=== PATIENT | male | born 1995 ===

== ENCOUNTER 2020-08-18 09:29 | Outpatient (REF) | payer SELFPAY | END 2020-08-18 09:30 | disposition home or self-care (01) | LOC: HO.LAB 09:29 | PROVIDERS: Visit Provider Internal Medicine | DX: Z20.828 Contact with and (suspected) exposure to other viral communicable diseases (principal) | CPT/HCPCS: C9803; U0003 ==

== ENCOUNTER 2021-04-17 18:38 | Emergency (ER) | payer MEDICAID, SELFPAY ==
--- NOTE | ~2021-04-17 | XR_ITS ---
EXAMINATION: XR SHOULDER, RIGHT XR CLAVICLE, RIGHT CLINICAL INFORMATION: Right shoulder injury. COMPARISON: None TECHNIQUE: AP internal rotation, external rotation, scapular Y, and Grashey views of the right shoulder. AP and axial views of the right clavicle. FINDINGS: There is a markedly comminuted fracture of the right mid clavicular shaft with posteroinferior displacement of the distal fracture fragment by roughly 2 shaft widths and foreshortening at the fracture site by up to 3 cm. The proximal fracture margin approaches the skin surface and may be open. No additional fractures are identified. Mild acromioclavicular osteoarthritis. Glenohumeral joint is unremarkable. Humeral head is appropriately situated at the glenoid. Imaged portion of the right chest wall is normal. XR/XR clavicle RT IMPRESSION: Comminuted, displaced mid clavicular shaft fracture, possibly open. No additional fractures.
--- NOTE | ~2021-04-17 | XR_ITS ---
EXAMINATION: XR SHOULDER, RIGHT XR CLAVICLE, RIGHT CLINICAL INFORMATION: Right shoulder injury. COMPARISON: None TECHNIQUE: AP internal rotation, external rotation, scapular Y, and Grashey views of the right shoulder. AP and axial views of the right clavicle. FINDINGS: There is a markedly comminuted fracture of the right mid clavicular shaft with posteroinferior displacement of the distal fracture fragment by roughly 2 shaft widths and foreshortening at the fracture site by up to 3 cm. The proximal fracture margin approaches the skin surface and may be open. No additional fractures are identified. Mild acromioclavicular osteoarthritis. Glenohumeral joint is unremarkable. Humeral head is appropriately situated at the glenoid. Imaged portion of the right chest wall is normal. XR/XR shoulder RT min 2V IMPRESSION: Comminuted, displaced mid clavicular shaft fracture, possibly open. No additional fractures.
[2021-04-17 18:41] VITALS: BP 123/85; PULSE 81; RESP 18; TEMP 36.7; O2SAT 94; BMI 21.7
--- NOTE | 2021-04-17 18:46 | PC.NURSE ---
pt offered tylenol, refused medication at this time.
[2021-04-17] MEDS: oxyCODONE HCl Immed Release 5 MG TABLET PO (19:56)
--- NOTE | 2021-04-17 20:00 | ED.EXTPRO ---
HPI - Extremity Problem General Chief complaint: Extremity Injury, Upper Stated complaint: collerbone injury Time Seen by Provider: 04/17/21 19:44 History of Present Illness HPI Narrative: Patient complains of right clavicle fracture playing football, he was hit with a helmet in the right clavicle and now complains of deformity pain and some tingling in his fingertips Related Data Previous Rx's Medication Instructions Recorded oxycodone 5 mg tablet 5 mg PO Q6H PRN #20 tab 04/17/21 oxycodone-acetaminophen 5 mg-325 1 tab PO Q4H PRN #40 tab 04/20/21 mg tablet (Percocet) Allergies Allergy/AdvReac Type Severity Reaction Status Date / Time ibuprofen [From MOTRIN] Allergy Unknown SWELLING Verified 05/03/21 10:17 Review of Systems Review of Systems: Positive for right clavicle pain and swelling with tingling in fingertips Negatives are no head injury no headache no vision changes no neck pain no numbness or weakness, no difficulty breathing no chest pain no rib pain no abdominal pain no nausea or vomiting no other extremity pains or injuries Yes all other systems are reviewed and are negative [facility] Past Medical History Medical History Right clavicle fracture Surgical History S/P appendectomy Social History Social History Alcohol intake: never Patient Tobacco Use Status: Never used Tobacco Second Hand Smoke Exposure: No Substance Use Type: Marijuana Current occupational status: unemployed Current occupation: rt handed Physical Exam Vital Signs: Vital Signs: Last Vital Signs Temp 98.0 F 04/17/21 18:41 Pulse 81 04/17/21 18:41 Resp 18 04/17/21 18:41 BP 123/85 04/17/21 18:41 Pulse Ox 94 04/17/21 18:41 Body Mass Index 21.7 General appearance no acute distress Head is normocephalic atraumatic Neck is supple and nontender The right clavicle is clearly deformed and tenting with tenderness but the skin is intact The chest is clear to auscultation bilateral with symmetric equal breath sounds, there is no rib tenderness Heart no murmur The abdomen soft nontender Extremities other than the right arm have full range of motion without tenderness swelling or deformity The right arm again there is tenderness and tenting in the clavicle but there is no other tenderness in the right upper extremity there is full range of motion in the elbow the wrist and the fingers, sensation is intact and neurovascular intact distal Course Course Course Narrative: X-ray showed a comminuted displaced clavicle fracture This was discussed with the orthopedic physician after school program assistant by text who said the patient will be seen quickly as he likely needs surgical repair He is placed in a sling given script for pain medicine and will follow closely with Orthopedics Discharge Plan Discharge Clinical Impression: Closed fracture of right clavicle Patient Disposition: Home, Self-Care Additional Instructions: You have of bad fracture of the clavicle, you may be a candidate for surgery so follow closely with orthopedist Return any time any concerns This was discussed with physician after school program assistant domingo Prescriptions: New oxycodone 5 mg tablet 5 mg PO Q6H PRN (Reason: pain) Qty: 20 RF: 0 No Action oxycodone-acetaminophen [Percocet] 5-325 mg tablet 1 tab PO Q4H PRN (Reason: post op pain) Qty: 40 RF: 0 Referrals: Marlyn Jacobs PA-C [Physician Induction Coordination Power Engineer] - 2 days (Deformed tenting right clavicle fracture) Lisseth Bautista MD [Physician] - 2 days (Deformed tenting clavicle fracture) Interventions: ED Discharge Assessment Last Done: 04/17/21 20:17 Discharge Date/Time: 04/17/21 20:19
--- NOTE | 2021-04-17 20:13 | PC.NURSE ---
RIGHT ARM IN SLING, MOVING FINGERS WITH GOOD MOBILITY/TEMPERATURE AND SENSATION. PT UNDERSTANDS TO FOLLOW UP WITH [facility], ALSO GIVEN NUMBER FOR [facility]. PT AMBULATORY WITH [facility].
== END 2021-04-17 20:19 | disposition home or self-care (01) ==
PROVIDERS: Emergency Provider Emergency Medicine Emergency Medical Services
DX: S42.021A Displaced fracture of shaft of right clavicle, initial encounter for closed fracture (principal); W50.0XXA Accidental hit or strike by another person, initial encounter; Y93.61 Activity, american tackle football; Y92.321 Football field as the place of occurrence of the external cause; Y99.9 Unspecified external cause status
CPT/HCPCS: 73000; 73030; 99284

== ENCOUNTER → 2021-04-19 13:55 | Outpatient (BNVA) | payer MEDICAID, SELFPAY | PROVIDERS: Visit Provider Physician Assistant | DX: S42.001A Fracture of unspecified part of right clavicle, initial encounter for closed fracture (principal) | CPT/HCPCS: 99202 ==

== ENCOUNTER 2021-04-20 07:42 | Day surgery (SDC) | payer MEDICAID, SELFPAY ==
[2021-04-20] VITALS (11 sets, daily range): BP systolic 120–133; BP diastolic 65–85; PULSE 52–82; RESP 14–20; TEMP 36.2–36.8; O2SAT 98–99; BMI 21.7
--- NOTE | ~2021-04-20 | FL_ITS ---
EXAMINATION: XR FLUOROSCOPY WITH IMAGES CLINICAL INFORMATION: Comminuted fracture mid right clavicle. COMPARISON: Radiographs right clavicle 04/17/2021 TECHNIQUE: Fluoroscopy performed by Dr. Lamont Quintanilla. Fluoroscopy time: 0.1 minutes DAP: 0.0277 mGycm2 Images: 2 FINDINGS: The right clavicular fracture is reduced with superior compression plate and multiple screws. Fracture fragments are in near anatomic alignment. Hardware is intact. FL/FL guidance in OR IMPRESSION: Status post open reduction internal fixation right clavicular fracture.
--- NOTE | 2021-04-20 08:58 | ED_ITS ---
HPI - General Adult General Chief complaint: Medical Clearance Stated complaint: rt clavicle fx Time Seen by Provider: 04/20/21 08:57 Source: patient Mode of arrival: ambulatory Limitations: no limitations History of Present Illness MD complaint: clavicle fracture Onset (ago): day(s) (injury occurred on monday) Location: chest (R clavicle) Radiation: non-radiation Severity: moderate Quality: aching Pain Consistency: constant Relieving factors: immobilization Exacerbating factors: movement Associated symptoms: other (bruising and tenting on the skin) Treatments prior to arrival: other (sling) Related Data Previous Rx's Medication Instructions Recorded oxycodone 5 mg tablet 5 mg PO Q6H PRN #20 tab 04/17/21 oxycodone-acetaminophen 5 mg-325 1 tab PO Q4H PRN #40 tab 04/20/21 mg tablet (Percocet) Allergies Allergy/AdvReac Type Severity Reaction Status Date / Time ibuprofen [From MOTRIN] Allergy Unknown SWELLING Verified 04/19/21 14:21 Review of Systems Review of Systems: Constitutional : No Fever, No Chills ENT/Mouth : No sore throat, No Rhinorrhea Eyes: No Eye Pain, No Swelling, No Redness Cardiovascular : No Chest Pain, No SOB Respiratory : No Cough, No Sputum Gastrointestinal : No Nausea, No Vomiting, No Diarrhea Genitourinary : No Dysuria, No Urinary Frequency, No Hematuria, Musculoskeletal : pos joint pain, No Myalgias, No Joint Swelling Skin : No Skin Lesions, No rash Neuro : No Weakness, No Numbness, No Dizziness, No Headache Psych : No Anxiety/Panic, No Depression All other systems reviewed and are negative COUNT INCLUDES THE [facility] Past Medical History Attestation statement: The following information was validated with the patient. Medical History Right clavicle fracture Surgical History S/P appendectomy Social History Social History (Updated 04/20/21 @ 09:13 by Amrita Urbina DO) Alcohol intake: never Patient Tobacco Use Status: Never used Tobacco Second Hand Smoke Exposure: No Use of substances other than those prescribed or required for medical reasons: Yes Substance Use Type: Marijuana Substance Use Frequency: Occasionally Are you DNR?: No Advance Directives: No Advance Directives Information Provided: No Advance Directives on File: No Current occupational status: unemployed Current occupation: rt handed Physical Exam Vital Signs: Vital Signs: Last Vital Signs Temp 97.7 F 04/20/21 14:05 Pulse 68 04/20/21 15:20 Resp 18 04/20/21 15:20 BP 120/68 04/20/21 15:20 Pulse Ox 99 04/20/21 15:20 Body Mass Index 21.7 Appearance: Alert. Oriented X3. No acute distress. Eyes: Pupils equal, round and reactive to light. ENT: Pharynx normal. Neck: Normal inspection. Neck supple. CVS: Normal heart rate and rhythm. Pulses normal. Chest: tenting and bruising noted over R clavicle Respiratory: No respiratory distress. Breath sounds normal. Abdomen: Soft and non-tender. Skin: Skin warm and dry. Normal skin color. Normal skin turgor. Extremities: No lower extremity edema. RUE distal NV intact, sling in place Neuro: Oriented X 3. No motor deficit. No sensory deficit. Medical Decision Making [facility] Narrative Medical decision making narrative: 25 yo male here with clavicle fracture with tenting and ecchymosis he needs surgery at this time to correct the fracture, NV intact, he will need COVID swab and CBC, recreational THC use, no cocaine, NPO since last night, not toxic, orthopedics aware and will take patient to surgery today. Lab Data Result diagrams: 04/20/21 09:17 Labs: Lab Results 04/20/21 04/20/21 Range/Units 09:17 09:17 WBC 4.7 L (4.8-10.8) X10*3/uL RBC 4.82 (4.60-5.80) X10*6/uL Hgb 13.5 L (14.0-18.0) g/dl Hct 40.5 L (42-52) % MCV 84.0 (80-98) fL MCH 28.0 (27.0-33.0) pg MCHC 33.3 (31.0-36.0) g/dl RDW 13.2 (11.0-16.0) % Plt Count 202 (160-400) X10*3/uL MPV 9.0 L (9.4-12.4) fL Absolute Nucleated RBC 0.000 (0.0-0.012) X10*3/uL Nucleated RBC % (auto) 0.0 (0.0-0.2) /100WBC COVID-19 (MANPREET) Negative (Negative) COVID-19 Clin Com See Note Discharge Plan Discharge Clinical Impression: Right clavicle fracture Qualifiers: Encounter type: sequela Clavicle location: shaft Fracture type: closed Fracture alignment: displaced Qualified Code(s): S42.021S - Displaced fracture of shaft of right clavicle, sequela Patient Disposition: Admitted as Observation
[2021-04-20 09:43] LABS: Hematocrit 40.5 % (42-52); Hemoglobin 13.5 g/dl (14.0-18.0); Mean Corpuscular HGB Conc 33.3 g/dl (31.0-36.0); Platelet Count 202 X10*3/uL (160-400); Red Blood Count 4.82 X10*6/uL (4.60-5.80); Red Cell Distribution Width 13.2 % (11.0-16.0); White Blood Count 4.7 X10*3/uL (4.8-10.8)
[2021-04-20 10:06] LABS: COVID-19 Test Negative (Negative); IDNOW Serial# 9DD0AD1C
--- NOTE | 2021-04-20 10:33 | P.HPOP_ITS ---
History of Present Illness History of Present Illness Date of Service: 04/20/21 Chief complaint: rt clavicle fx - med clearance Narrative: Moris Magallon is a 25 year old male with a 3 day history of a closed clavicle fracture. He presented yesterday to my office with tenting of the skin. He continues to have pain and worsening swelling over the fracture site. Review of Systems Review of Systems: Yes all other systems are reviewed and are negative Constitutional: Constitutional: Reports no additional constitutional complaints Eyes: Eyes: Reports no additional eye complaints ENT: Reports system reviewed and no additional complaints, except as documented Cardiovascular: Cardiovascular: Reports no additional cardiovascular complaints Respiratory: Respiratory: Reports no additional respiratory complaints Gastrointestinal: Gastrointestinal: Reports no additional gastrointestinal complaints Genitourinary: Genitourinary: Reports no additional male genitourinary complaints Musculoskeletal: Musculoskeletal: Reports as per HPI Neurologic: Reports as per HPI PMFSH Past Medical History Medical History Right clavicle fracture Surgical History Surgical History S/P appendectomy Social History Social History (Updated 04/20/21 @ 09:13 by Amrita Urbina DO) Alcohol intake: never Patient Tobacco Use Status: Never used Tobacco Substance Use Type: Marijuana Substance Use Frequency: Socially Advance Directives: No Advance Directives Information Provided: No Current occupational status: unemployed Current occupation: rt handed Meds Allergies Allergy/AdvReac Type Severity Reaction Status Date / Time ibuprofen [From MOTRIN] Allergy Unknown SWELLING Verified 04/19/21 14:21 Physical Exam Vital Signs: Vital Signs: Last Vital Signs Temp 97.1 F 04/20/21 08:59 Pulse 53 04/20/21 08:59 Resp 14 04/20/21 08:59 BP 123/65 04/20/21 08:59 Pulse Ox 98 04/20/21 08:59 Body Mass Index 21.7 Const: General: cooperative, healthy appearing, no acute distress and well groomed Orientation/consciousness: oriented to person and oriented to place HENMT: Head: Yes normal to inspection, Yes normocephalic and Yes atraumatic Eyes: General: appearance normal, both eyes and all related structures Alignment and Position: alignment normal Conjunctivae: conjunctivae normal EOM: EOMs intact bilaterally Neck: Neck: Yes normal visual inspection and Yes trachea midline Resp: Other: No rerpiratory distress Effort & Inspection: normal respiratory effort and able to speak in complete sentences Cardio: Other: Palpable radial pulse with no appreciable rythmic abnormalities GI: Other: No abdominal distension Back/Spine/Pelvis: Cervical Spine: normal cervical lordosis and cervical ROM normal Skin: General skin exam: no rashes or lesions noted Neuro: General: oriented to person, oriented to place and gait normal Extrem: Other: right shoulder with superior swellign and eccymosis. There is TENTING of the skin over the fracture site. SILT RUE Firing EPL/FDP/IO 2+ RP Results Labs Result Diagrams: 04/20/21 09:17 Labs: Abnormal lab results 04/20/21 Range/Units 09:17 WBC 4.7 L (4.8-10.8) X10*3/uL Hgb 13.5 L (14.0-18.0) g/dl Hct 40.5 L (42-52) % MPV 9.0 L (9.4-12.4) fL H & H 04/20/21 Range/Units 09:17 Hgb 13.5 L (14.0-18.0) g/dl Hct 40.5 L (42-52) % All other labs normal. Diagnostic results Shoulder x-ray: image reviewed (Displaced and shortened right clavicle fracture) Assessment and Plan (1) Right clavicle fracture: Qualifiers: Clavicle location: shaft Encounter type: sequela Fracture alignment: displaced Fracture type: closed Qualified Code(s): S42.021S - Displaced fracture of shaft of right clavicle, sequela Status: Acute This is a this is a 25-year-old active and healthy gentleman with a right clavicle fracture. There is tenting of the skin and I recommend operative intervention. I discussed with him the risks benefits and alternatives includ ing but not limited to the risk of infection, stiffness, superficial nerve injury, need for further surgery, removal of hardware, cosmetic scarring. He expressed understanding and we will proceed forward. Quality Stroke Does the patient have a stroke diagnosis?: No VTE Prior VTE?: No VTE Risk Level:: Surgical - low VTE Device Contraindication: Procedure Contraindicated VTE Drug Contraindication: Treatment Not Indicated Procedures Date of Service Date of Service: 04/20/21
--- NOTE | 2021-04-20 10:35 | HO.ANESPROP2 ---
[facility] Active Problems Active Problems: All Active Problems (Updated 04/20/21 @ 10:28 by Lyle Lewis) Right clavicle fracture (Acute) Clavicular fracture (Acute) Past Medical History Medical History Right clavicle fracture Functional capacity: independent ambulation Family History Family history of problems with anesthesia: No Surgical History Surgical History S/P appendectomy History of Problems with Anesthesia: No Social History Social History (Updated 04/20/21 @ 09:13 by Amrita Urbina DO) Alcohol intake: never Patient Tobacco Use Status: Never used Tobacco Substance Use Type: Marijuana Substance Use Frequency: Socially Advance Directives: No Advance Directives Information Provided: No Current occupational status: unemployed Current occupation: rt handed Meds Allergies Allergy/AdvReac Type Severity Reaction Status Date / Time ibuprofen [From MOTRIN] Allergy Unknown SWELLING Verified 04/19/21 14:21 Exam Exam Date and Time: April 20, 2021 1035 Height,Weight and Vital Signs: Height 6 ft 1 in Weight 74.843 kg Last Vital Signs Temp 97.1 F 04/20/21 08:59 Pulse 53 04/20/21 08:59 Resp 14 04/20/21 08:59 BP 123/65 04/20/21 08:59 Pulse Ox 98 04/20/21 08:59 Pertinent Lab Results Pertinent Lab Results: Laboratory Tests 04/20/21 04/20/21 09:17 09:17 WBC 4.7 L RBC 4.82 Hgb 13.5 L Hct 40.5 L MCV 84.0 MCH 28.0 MCHC 33.3 RDW 13.2 Plt Count 202 MPV 9.0 L Absolute Nucleated RBC 0.000 Nucleated RBC % (auto) 0.0 COVID-19 (MANPREET) Negative COVID-19 Clin Com See Note Airway TM Dist: >3cm Neck ROM: Full Heart: RRR Lungs: CTA Assessment and Plan Final Anesthetic Review Family History of Problems with Anesthesia: No History of Problems with Anesthesia: No
--- NOTE | 2021-04-20 10:39 | MHC.SHP ---
Pre-Procedural Eval Section A Date of Service: 04/20/21 The patient is an INPATIENT: No Changes since office visit: Yes Patient answered all questions; No Cold of Flu in the past 2 weeks, No New Medical Problems and No Changes in Medication The History & Physical has been completed within 30 days and I have reviewed it.: Yes Section B Chief Complaint: rt clavicle fx - med clearance Allergies: Allergies Allergy/AdvReac Type Severity Reaction Status Date / Time ibuprofen [From MOTRIN] Allergy Unknown SWELLING Verified 04/19/21 14:21 Plan I have reviewed the history and physical and performed a pertinent physical examination on my patient. No changes have occurred unless specified.
[2021-04-20] MEDS: Lactated Ringers 1,000 ML 50 ML IVCONT (11:11)
--- NOTE | 2021-04-20 11:11 | PC.NURSE ---
pt states allergy to ibuprofen causing lip swelling. Pt denies any reaction to Motrin, Acetaminophen or Tylenol.
--- NOTE | 2021-04-20 13:42 | P.BOP_ITS ---
Brief Operative Note Date of Service: 04/20/21 Pre-op diagnosis: right clavicle fracture Post-op diagnosis: same Procedure: ORIF right clavicle fracture Implants: yuko Surgeon: Lamont Quintanilla MD Anesthesia: GETA and regional Was an Environmental Project Manager used for this Procedure?: No Estimated blood loss (mL): 25 IV fluids (mL): 1,000 Pathology: none sent Condition: stable Disposition: PACU
--- NOTE | 2021-04-22 14:43 | W.PM.OPN ---
Operative Note Operative Note Date of Service: 04/20/21 Narrative: Pre-op diagnosis: right clavicle fracture Post-op diagnosis: same Procedure: ORIF right clavicle fracture Implants: yuko Surgeon: Lamont Quintanilla MD Anesthesia: GETA and regional Was an Straight Edger used for this Procedure?: No Estimated blood loss (mL): 25 IV fluids (mL): 1,000 Pathology: none sent Condition: stable Disposition: PACU Indications: This is a 25-year-old gentleman who presented with tenting of his skin after closed clavicle fracture. He was consented to undergo ORIF. Procedure in detail: Patient was brought to the operative room placed in the beach chair position and his right upper extremity was prepped and draped in standard sterile fashion. A time-out was called to identify proper site proper procedure proper surgeon and IV antibiotics were administered. I began by making a longitudinal incision over the superior aspect of the clavicle. At dissection was taken down thickly lateral to the fracture and with Littler scissor dissection medial. Once identified the fracture was a comminuted displaced fracture with two large butterfly fragments. I cleared the fractures off with irrigation, sharp dissection and a repeat rupture and then used a lobster claw tenaculum to reduce the fractures. I then placed 1 a to P lag screws through the 2 primary fragments provisionally stabilizing the fracture. I then selected a 8 hole bridging locking plate and this was placed superior clavicle and biplanar fluoroscopy was used to confirm positioning. I used standard AO technique to place 4 bicortical locking screws medial to the fracture and 4 bicortical nonlocking screws lateral to the fracture. Once this was done I confirmed with biplanar fluoroscopy that position of the hardware was satisfactory. I then irrigated copiously and closed with absorbable suture and a running Prolene, Steri-Strips and skin glue. Patient was placed in sterile dressing extubated brought to recovery room in stable condition there were no known complications.
== END 2021-04-20 16:05 | disposition home or self-care (01) ==
LOC: HO.ED 09:53 → HO.SSS 11:43
PROVIDERS: Emergency Provider Emergency Medicine; Visit Provider Orthopaedic Surgery
PROC: (CPT 23515; principal; 2021-04-20 12:30)
DX: S42.021A Displaced fracture of shaft of right clavicle, initial encounter for closed fracture (principal); W21.81XA Striking against or struck by football helmet, initial encounter; Y93.61 Activity, american tackle football; Y92.9 Unspecified place or not applicable; Y99.8 Other external cause status; F12.90 Cannabis use, unspecified, uncomplicated; Z20.822 Contact with and (suspected) exposure to COVID-19
CPT/HCPCS: 23515; 36415; 85027; 87635; 99282; C1713; J0690; J1100; J1885; J2250; J2405; J3010

== ENCOUNTER 2021-05-03 07:34 | Outpatient (REF) | payer MEDICAID, SELFPAY ==
--- NOTE | ~2021-05-03 | XR_ITS ---
EXAMINATION: XR CLAVICLE, RIGHT CLINICAL INFORMATION: Fracture. COMPARISON: Most recent right clavicle radiographs dated 04/17/2021 TECHNIQUE: Straight AP and cephalad angulated AP views of the right clavicle. FINDINGS: Right clavicular superior stabilization plate with multiple fixation screws. Clavicular fracture in near-anatomic alignment. No hardware fracture. No perihardware lucency to suggest loosening or infection. No abnormal soft tissue calcification. XR/XR clavicle RT IMPRESSION: Right clavicular ORIF without evidence of hardware complication. Clavicular fracture now in near-anatomic alignment.
== END 2021-05-03 07:35 | disposition home or self-care (01) ==
LOC: HO.HOSX 07:34
PROVIDERS: Visit Provider Physician Assistant
DX: S42.001D Fracture of unspecified part of right clavicle, subsequent encounter for fracture with routine healing (principal)
CPT/HCPCS: 73000; 99212

== ENCOUNTER 2021-05-12 12:49 | Outpatient (REF) | payer MEDICAID, SELFPAY ==
--- NOTE | ~2021-05-12 | XR_ITS ---
EXAMINATION: XR CLAVICLE, RIGHT CLINICAL INFORMATION: Clavicular fracture. COMPARISON: 05/03/2021 TECHNIQUE: Two views of the right clavicle. FINDINGS: Again seen is a stabilization plate with multiple screws and a mid right clavicular fracture. Compared with the prior study, fracture edges appear less distinct and there is some periosteal reaction present but no fracture healing with fusion of fragments as of yet. XR/XR clavicle RT IMPRESSION: Fixation plate right clavicular fracture. Some interval healing has occurred.
== END 2021-05-12 12:50 | disposition home or self-care (01) ==
LOC: HO.HOSX 12:49
PROVIDERS: Visit Provider Physician Assistant
DX: S42.001A Fracture of unspecified part of right clavicle, initial encounter for closed fracture (principal); T81.9XXA Unspecified complication of procedure, initial encounter
CPT/HCPCS: 73000; 99212

== ENCOUNTER → 2021-05-13 07:49 | Outpatient (BNVA) | payer MEDICAID, SELFPAY | PROVIDERS: Visit Provider Orthopaedic Surgery | DX: T81.33XA Disruption of traumatic injury wound repair, initial encounter (principal); Z87.311 Personal history of (healed) other pathological fracture | CPT/HCPCS: 99212 ==

== ENCOUNTER 2021-05-14 10:24 | Day surgery (SDC) | payer MEDICAID, SELFPAY ==
--- NOTE | 2021-05-13 13:09 | HO.ANESPROP2 ---
Documented by User: Alicia Sheffield NP 05/13/21 13:10 HPI - Anesthesia Eval Consult details Narrative: 26yo M for Right Delayed Secondary Closure of Clavicle s/p clavical ORIF 04/20/21 with [facility] Active Problems Active Problems: All Active Problems (Updated 05/13/21 @ 08:25 by Lamont Quintanilla MD) Abnormal surgical wound (Acute) Right clavicle fracture (Acute) Past Medical History Medical History Right clavicle fracture Family History Family history of problems with anesthesia: No Surgical History Surgical History S/P appendectomy History of Problems with Anesthesia: No Social History Social History Alcohol intake: never Patient Tobacco Use Status: Never used Tobacco Second Hand Smoke Exposure: No Use of substances other than those prescribed or required for medical reasons: Yes Substance Use Type: Marijuana Substance Use Frequency: Occasionally Are you DNR?: No Advance Directives: No Advance Directives Information Provided: Yes Current occupational status: unemployed Current occupation: rt handed Meds Allergies Allergy/AdvReac Type Severity Reaction Status Date / Time ibuprofen [From MOTRIN] Allergy Unknown SWELLING Verified 05/13/21 07:53 Exam Exam Date and Time: May 13, 2021 1309 Pertinent Lab Results Pertinent Lab Results: Laboratory Tests 04/20/21 09:17 WBC 4.7 L Hgb 13.5 L Hct 40.5 L Plt Count 202 Assessment and Plan Assessment Anesthesia Assessment: Chart Reviewed Final Anesthetic Review Family History of Problems with Anesthesia: No History of Problems with Anesthesia: No Documented by User: Karen Smith MD 05/14/21 12:05 PMF Past Medical History Medical History Right clavicle fracture Functional capacity: wheelchair bound Family History Pertinent family history: [facility] Surgical History Surgical History S/P appendectomy Social History Social History Alcohol intake: never Patient Tobacco Use Status: Never used Tobacco Second Hand Smoke Exposure: No Use of substances other than those prescribed or required for medical reasons: Yes Substance Use Type: Marijuana Substance Use Frequency: Occasionally Are you DNR?: No Advance Directives: No Advance Directives Information Provided: Yes Current occupational status: unemployed Current occupation: rt handed Meds Allergies Allergy/AdvReac Type Severity Reaction Status Date / Time ibuprofen [From MOTRIN] Allergy Unknown SWELLING Verified 05/13/21 07:53 Exam Airway Mallampati Class: II Neck ROM: Full Heart: RRR Lungs: cta Assessment and Plan Assessment Anesthesia Assessment: Anesthesia Plan Discussed and Smoking Cess. Discussed Final Anesthetic Review NPO: Yes ASA Class: I Final Preanesthetic Review: Meds/Allgs Chart Reviewed, Consent Obtained/Reviewed and Anes Risks/Benef Reviewed Patient Risk: Low Procedure Risk: Low Anesthetic Plan Anesthetic Plan: GA Disposition: Standard PACU
[2021-05-14] VITALS (8 sets, daily range): BP systolic 109–138; BP diastolic 58–67; PULSE 53–63; RESP 16–18; TEMP 36.2–36.4; O2SAT 98–100; BMI 21.7
[2021-05-14] MEDS: Lactated Ringers 1,000 ML 100 ML IVCONT (11:04)
--- NOTE | 2021-05-14 12:09 | MHC.SHP ---
Pre-Procedural Eval Section A Date of Service: 05/14/21 The patient is an INPATIENT: No Changes since office visit: Yes Patient answered all questions; No Cold of Flu in the past 2 weeks, No New Medical Problems and No Changes in Medication The History & Physical has been completed within 30 days and I have reviewed it.: Yes Section B Chief Complaint: Disruption of wound Allergies: Allergies Allergy/AdvReac Type Severity Reaction Status Date / Time ibuprofen [From MOTRIN] Allergy Unknown SWELLING Verified 05/13/21 07:53 Plan I have reviewed the history and physical and performed a pertinent physical examination on my patient. No changes have occurred unless specified.
[2021-05-14] MEDS: Acetaminophen 325 MG TABLET 650 MG PO (13:22)
[2021-05-14] MEDS: fentaNYL citrate/PF 100 MCG/2 ML VIAL 25 MCG IVPUSH (13:23)
[2021-05-14] MEDS: oxyCODONE HCl Immed Release 5 MG TABLET PO (13:23)
--- NOTE | 2021-05-16 16:25 | PM.OP ---
Brief Operative Note Date of Service: 05/14/21 Pre-op diagnosis: right clavicle wound dehiscence Post-op diagnosis: same Procedure: delayed primary closure right clavicle Surgeon: Lamont Quintanilla MD Anesthesia: [facility] Was an Application Integration Engineer used for this Procedure?: No Estimated blood loss (mL): 25 IV fluids (mL): 500 Pathology: none sent Condition: stable Disposition: PACU
--- NOTE | 2021-05-17 16:46 | P.OP_ITS ---
Operative Note Operative Note Date of Service: 05/13/21 Narrative: Pre-op diagnosis: right clavicle wound dehiscence Post-op diagnosis: same Procedure: delayed primary closure right clavicle Surgeon: Lamont Quintanilla MD Anesthesia: [facility] Was an Renewable Energy Consultant used for this Procedure?: No Estimated blood loss (mL): 25 IV fluids (mL): 500 Pathology: none sent Condition: stable Disposition: PACU Procedure in detail: Patient was brought the operating room placed supine on the operative table and a modified beach chair position was assumed and a time- out was called to identify proper site proper procedure proper surgeon IV antibiotics per weight were administered. I began by opening up the small area of wound dehiscence. Unfortunately this was right along the incision and the portion of the incision medial to the dehiscence opened quite easily and therefore I reopened about 50% of the incision. There was no evidence of infection but the skin was very tenuous over the plate and so I irrigated copiously with 6 L of saline and used a rongeur to remove any necrotic or fibrinous material. I then closed with a vertical mattress 2-0 nylon. Patient was then placed in a sterile dressing awakened from anesthesia brought to recovery room in stable condition there were no known complications.
== END 2021-05-14 13:00 | disposition home or self-care (01) ==
PROVIDERS: Visit Provider Orthopaedic Surgery
PROC: (CPT 12020; principal; 2021-05-14 12:00)
DX: T81.31XA Disruption of external operation (surgical) wound, not elsewhere classified, initial encounter (principal); Y83.8 Other surgical procedures as the cause of abnormal reaction of the patient, or of later complication, without mention of misadventure at the time of the procedure; Y92.9 Unspecified place or not applicable
CPT/HCPCS: 12020; J0690; J2250; J3010

== ENCOUNTER → 2021-05-20 15:22 | Outpatient (BNVA) | payer MEDICAID, SELFPAY | PROVIDERS: Visit Provider Physician Assistant | DX: Z47.1 Aftercare following joint replacement surgery (principal); Z96.611 Presence of right artificial shoulder joint; S42.021S Displaced fracture of shaft of right clavicle, sequela; X50.3XXS Overexertion from repetitive movements, sequela; Z88.8 Allergy status to other drugs, medicaments and biological substances | CPT/HCPCS: 99212 ==

== ENCOUNTER 2021-05-31 08:18 | Outpatient (REF) | payer MEDICAID, SELFPAY | END 2021-05-31 08:19 | disposition home or self-care (01) | LOC: HO.HOSX 08:18 | PROVIDERS: Visit Provider Orthopaedic Surgery | DX: Z13.89 Encounter for screening for other disorder (principal) ==

== ENCOUNTER → 2021-06-03 14:29 | Outpatient (BNVA) | payer MEDICAID, SELFPAY | PROVIDERS: Visit Provider Physician Assistant | DX: Z48.02 Encounter for removal of sutures (principal); S42.021D Displaced fracture of shaft of right clavicle, subsequent encounter for fracture with routine healing; Z79.2 Long term (current) use of antibiotics | CPT/HCPCS: 99212 ==

== ENCOUNTER 2021-06-17 14:18 | Outpatient (REF) | payer MEDICAID, SELFPAY ==
--- NOTE | ~2021-06-17 | XR_ITS ---
EXAMINATION: XR CLAVICLE, RIGHT CLINICAL INFORMATION: Fracture status post ORIF. COMPARISON: 05/12/21. TECHNIQUE: Two views of the right clavicle. FINDINGS: A sideplate and screws remain in stable position across the fracture the midshaft of the clavicle. Anatomic alignment is maintained. Developing callus is present. The fracture line is still visible. XR/XR clavicle RT IMPRESSION: Healing right clavicular fracture in stable anatomic alignment status post ORIF.
== END 2021-06-17 14:19 | disposition home or self-care (01) ==
LOC: HO.HOSX 14:18
PROVIDERS: Visit Provider Physician Assistant
DX: S42.001D Fracture of unspecified part of right clavicle, subsequent encounter for fracture with routine healing (principal); T81.9XXD Unspecified complication of procedure, subsequent encounter
CPT/HCPCS: 73000; 99212

== ENCOUNTER 2021-07-22 09:41 | Outpatient (REF) | payer MEDICAID, SELFPAY ==
--- NOTE | ~2021-07-22 | XR_ITS ---
EXAMINATION: XR CLAVICLE, RIGHT CLINICAL INFORMATION: Fracture of the right clavicle. COMPARISON: 06/17/2021 TECHNIQUE: Two views of the right clavicle. FINDINGS: Plate and screw fixation hardware remains in place transfixing the right midclavicular fracture. Hardware is intact. Osseous alignment is unchanged. Increased callus formation at the fracture site. Appropriate alignment of the acromioclavicular joint. XR/XR clavicle RT IMPRESSION: Intact fixation hardware of the right clavicle with continued healing.
== END 2021-07-22 09:42 | disposition home or self-care (01) ==
LOC: HO.HOSX 09:41
PROVIDERS: Visit Provider Physician Assistant
DX: S42.001D Fracture of unspecified part of right clavicle, subsequent encounter for fracture with routine healing (principal); T81.9XXD Unspecified complication of procedure, subsequent encounter
CPT/HCPCS: 73000; 99212

== ENCOUNTER 2021-09-23 08:03 | Outpatient (REF) | payer MEDICAID, SELFPAY ==
--- NOTE | ~2021-09-23 | XR_ITS ---
EXAMINATION: XR CLAVICLE, RIGHT CLINICAL INFORMATION: Fracture COMPARISON: 07/22/2021 TECHNIQUE: Frontal and oblique views of the right clavicle. FINDINGS: Plate, multiple screws across the fracture of the right clavicle remain in place intact, fracture lines are less visible suggesting a proper healing there is periosteal reaction and new bone formation. No radiographic evidence of device failure.. XR/XR clavicle RT IMPRESSION: Healing fracture, ORIF, hardware right clavicle fracture are intact.
== END 2021-09-23 08:04 | disposition home or self-care (01) ==
LOC: HO.HOSX 08:03
PROVIDERS: Visit Provider Physician Assistant
DX: S42.001D Fracture of unspecified part of right clavicle, subsequent encounter for fracture with routine healing (principal); Z96.9 Presence of functional implant, unspecified
CPT/HCPCS: 73000; 99212

== ENCOUNTER 2021-09-28 05:52 | Day surgery (SDC) | payer MEDICAID, SELFPAY ==
[2021-09-28] VITALS (12 sets, daily range): BP systolic 106–125; BP diastolic 64–73; PULSE 61–72; RESP 12–16; TEMP 36.1–36.7; O2SAT 98–100; BMI 21.7
--- NOTE | ~2021-09-28 | FL_ITS ---
EXAMINATION: XR FLUOROSCOPY WITH IMAGES CLINICAL INFORMATION: Removal hardware of right clavicle. COMPARISON: Radiograph of the right clavicle dated from 09/23/2021. TECHNIQUE: Fluoroscopy performed by Dr. Lamont Quintanilla. Fluoroscopy time: 0 minutes DAP: [id number] Images: 1 FL/FL guidance in OR FINDINGS/IMPRESSION: Provided fluoroscopic image demonstrate a single screw projecting over the right clavicle. A radiologist was not present during the procedure. Please correlate with intraoperative report.
--- NOTE | 2021-09-28 07:09 | P.CONAN_ITS ---
HPI - Anesthesia Eval Consult details Narrative: 26 M for right clavicle hardware removal PMFSH Active Problems Active Problems: All Active Problems (Updated 09/23/21 @ 10:22 by Tyra Lloyd PA-C) Retained orthopedic hardware (Acute) Closed fracture of right clavicle with routine healing (Acute) Abnormal surgical wound (Acute) Right clavicle fracture (Acute) Past Medical History Medical History Right clavicle fracture Functional capacity: independent ambulation Family History Family history of problems with anesthesia: No Surgical History Surgical History S/P appendectomy History of Problems with Anesthesia: No Social History Social History Alcohol intake: never Patient Tobacco Use Status: Never used Tobacco Second Hand Smoke Exposure: No Use of substances other than those prescribed or required for medical reasons: No Substance Use Type: Marijuana Are you DNR?: No Advance Directives: No Advance Directives Information Provided: Yes Advance Directives on File: No Current occupational status: employed 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 [employer] Meds Allergies Allergy/AdvReac Type Severity Reaction Status Date / Time ibuprofen [From MOTRIN] Allergy Unknown SWELLING Verified 07/22/21 14:15 Exam Exam Date and Time: September 28, 2021 0709 Height,Weight and Vital Signs: Height 6 ft 1 in Weight 74.843 kg Last Vital Signs Temp 97.0 F 09/28/21 06:25 Pulse 63 09/28/21 06:25 Resp 16 09/28/21 06:25 BP 125/72 09/28/21 06:25 Pulse Ox 100 09/28/21 06:25 Airway Mallampati Class: II TM Dist: >3cm Neck ROM: Full Loose/Missing/Broken Teeth: Yes Assessment and Plan Final Anesthetic Review Family History of Problems with Anesthesia: No History of Problems with Anesthesia: No NPO: Yes ASA Class: I Final Preanesthetic Review: Anes Risks/Benef Reviewed Patient Risk: Intermediate Procedure Risk: Intermediate Anesthetic Plan Anesthetic Plan: GA Disposition: Standard PACU
--- NOTE | 2021-09-28 07:43 | MHC.SHP ---
Pre-Procedural Eval Section A Date of Service: 09/28/21 The patient is an INPATIENT: No Changes since office visit: Yes Patient answered all questions; No Cold of Flu in the past 2 weeks, No New Medical Problems and No Changes in Medication The History & Physical has been completed within 30 days and I have reviewed it.: Yes Section B Chief Complaint: ortho hardware removal Allergies: Allergies Allergy/AdvReac Type Severity Reaction Status Date / Time ibuprofen [From MOTRIN] Allergy Unknown SWELLING Verified 07/22/21 14:15 Plan I have reviewed the history and physical and performed a pertinent physical examination on my patient. No changes have occurred unless specified.
[2021-09-28] MEDS: fentaNYL citrate/PF 100 MCG/2 ML VIAL 25 MCG IVPUSH ×3 (09:21→09:35)
[2021-09-28] MEDS: Acetaminophen 325 MG TABLET 650 MG PO (09:22)
[2021-09-28] MEDS: oxyCODONE HCl Immed Release 5 MG TABLET PO (09:22)
--- NOTE | 2021-09-28 12:15 | PM.OP ---
Brief Operative Note Date of Service: 09/28/21 Pre-op diagnosis: retained orthopaedic hardware Post-op diagnosis: same Procedure: Removal of hardware clavicle right Surgeon: Lamont Quintanilla MD Anesthesia: [facility] and local Was an Maxillofacial Pathology used for this Procedure?: Yes Maxillofacial Pathology: Tyra Lloyd Estimated blood loss (mL): 25 IV fluids (mL): 1,000 Pathology: none sent Condition: stable Disposition: PACU
--- NOTE | 2021-09-29 12:22 | P.OP_ITS ---
Operative Note Operative Note Date of Service: 09/29/21 Narrative: Date of Service: 09/28/21 Pre-op diagnosis: retained orthopaedic hardware Post-op diagnosis: same Procedure: Removal of hardware clavicle right Surgeon: Lamont Quintanilla MD Anesthesia: [facility] and local Was an Wire Preparation Worker used for this Procedure?: Yes Wire Preparation Worker: Tyra Lloyd Estimated blood loss (mL): 25 IV fluids (mL): 1,000 Pathology: none sent Condition: stable Disposition: PACU Patient was brought to the operating room and placed in a modified beach chair position on the surgical table. He was prepped and draped in standard sterile fashion and a time out was called to identify proper site, proper procedure and IV antibiotics per weight were administered. I began by making an incision over the prior incision. The plate was very superficial and easily exposed. There was no evidence of infection. I removed all screws easily and without complication. I then irrigated copiously and removed all excess tissue and bony fragments. I then closed in a layered fashion with 3-0 Vicryl and absorbable subcuticular barbed suture. Skin glue and Steri-Strips were then applied. Final radiographs were taken. The leg screw remained in place. The fracture was stable and appeared largely healed. I injected local around the area of the incision and sterile dressings were applied. Patient was extubated brought to recovery room in stable condition. There were no known complications.
== END 2021-09-28 10:35 | disposition home or self-care (01) ==
PROVIDERS: PCP Internal Medicine; Visit Provider Orthopaedic Surgery
PROC: (CPT 20670; principal; 2021-09-28 07:30)
DX: T84.84XA Pain due to internal orthopedic prosthetic devices, implants and grafts, initial encounter (principal); G89.18 Other acute postprocedural pain; Y83.8 Other surgical procedures as the cause of abnormal reaction of the patient, or of later complication, without mention of misadventure at the time of the procedure; Y92.9 Unspecified place or not applicable
CPT/HCPCS: 20670; J0690; J1100; J1170; J2250; J2405; J3010

== ENCOUNTER 2021-10-11 07:50 | Outpatient (REF) | payer MEDICAID, SELFPAY ==
--- NOTE | ~2021-10-11 | XR_ITS ---
EXAMINATION: XR CLAVICLE, RIGHT CLINICAL INFORMATION: Right clavicle fracture. COMPARISON: Right clavicle radiographs dated 09/23/2021. TECHNIQUE: 2 of the right clavicle. FINDINGS: There has been interval removal of the superior fixation plate and securing cortical screws. There is residual cortical screws seen in the mid one third of the clavicle without significant change. The right midclavicular fracture appears healed with associated deformity/sclerosis, but overall good anatomic alignment. The right sternoclavicular, acromioclavicular and glenohumeral joints are intact. The soft tissues are unremarkable. XR/XR clavicle RT IMPRESSION: No significant right clavicular abnormality status post superior plate removal.
== END 2021-10-11 07:51 | disposition home or self-care (01) ==
LOC: HO.HOSX 07:50
PROVIDERS: Visit Provider Physician Assistant
DX: S42.001D Fracture of unspecified part of right clavicle, subsequent encounter for fracture with routine healing (principal)
CPT/HCPCS: 73000; 99212

== ENCOUNTER 2021-11-10 05:59 | Outpatient (REF) | payer MEDICAID, SELFPAY | END 2021-11-10 06:00 | disposition home or self-care (01) | LOC: HO.HOSX 05:59 | PROVIDERS: Visit Provider Physician Assistant | DX: Z13.89 Encounter for screening for other disorder (principal) ==

== ENCOUNTER 2022-07-18 06:51 | Emergency (ER) | payer MEDICAID, SELFPAY ==
--- NOTE | ~2022-07-18 | XR_ITS ---
EXAMINATION: XR FINGER, LEFT CLINICAL INFORMATION: Fifth finger pain and swelling. COMPARISON: None TECHNIQUE: 3 views of the left fifth digit. FINDINGS: Spiral fracture of the mid to distal third of the proximal phalanx of the fifth digit is present with less than 0.2 cm cortical bone offset in the medial diaphysis. The fracture line tapers as it approaches the phalangeal head at the margin of the proximal interphalangeal joint. Alignment is normal at the interphalangeal joint. The joint spaces are normal within the hand and wrist. XR/XR finger LT min 2V IMPRESSION: There is a minimally displaced spiral fracture of the proximal phalanx of the fifth digit.
[2022-07-18 07:10] VITALS: BP 141/70; PULSE 76; RESP 19; TEMP 36.6; O2SAT 99; BMI 21.7
--- OUTSIDE RECORDS SUMMARY | 2022-07-18 08:14 | XMS_ITS ---
:1995 External Reference #:[id number] Author Care Team Providers Name Role Phone DR. DANNY RAE Primary Care Provider Unavailable [facility] Primary Care Provider [phone] Allergies Code Code System Name Reaction Severity Status Onset NKDA ? Medications No Medications Reported Problems Name Status Onset Date Source ? Dizziness and Giddiness Active ? Encounte r Palpitations Active ? Encounter Chest Pain Active ? Encounter Procedures Date Name Performed by ? 08/14/2012 Electrocardiogram Information not avai lable Results Lab Results None recorded. Past Encounters None recorded. Social History Tobacco Smoking Status Never Smoker Vaccine List None recorded. Plan of Care Reminders Provider Appointments None recorded. ? ? Lab None recorded. ? ? Referral None recorded. ? ? Procedures None recorded. ? ? Surgeries None recorded. ? ? Imaging None recorded. ? ? Vitals Height Weight BMI Blood Pressure 179 cm 65 kg 20.3 kg/m2 116/70 mm[Hg]
--- OUTSIDE RECORDS SUMMARY | 2022-07-18 08:14 | XMS_ITS | Continuity of Care Document ---
:1995 Author Organization [facility] Address [address] [place] [address]- Care Team Providers Name Role Phone Not on Staff, PCP Primary Care Physician Unavailable Encounter [facility] Date(s): 04/30/22 - 04/30/[address] [address]- Encounter Diagnosis Clavicle fracture (Final) - 04/30/22 Discharge Disposition: A-D/C Home Attending Physician: Nohemi Easley DO Admitting Physician: Nohemi Easley DO Referring Physician: Not on Staff, Referring MD Allergies, Adverse Reactions, Alerts Substance Reaction Severity Status Motrin Active Tylenol Active Medications oxyCODONE 5 mg oral tablet See Instructions, PRN, 1 tablet By Mouth Every 6 hours, do not drive while using this medication, # 12 tablet, Refills 0, Tot. Refills 0, Maintenance, as needed for pain, 04/30/22 21:54:00 EDT, Instructions Replace Required Details, Route to Pharmacy... Start Date: 04/30/22 Status: OrderedOxyCODONE IR Tablet 5 mg, Tablet, By Mouth, Once, STAT, 04/30/22 20:25:00 EDT, Stop date 04/30/22 20:25:00 EDT Start Date: 04/30/22 Stop Date: 04/30/22 Status: Completed Results Radiology Reports Exam Date Time Procedure Performing Provider Status 04/30/22 8:07 PM Clavicle Complete Left Holly Cheek; Jennifer (Verified) Notes:(Clavicle Complete Left) Reason For Exam: with Pain;TraumaRESULT: Clavicle Complete Left Clavicle Complete Left INDICATION: pt was playing football and felt left shoulder displace, hx displaced right shoulder, deformity noted, positive pulses. Pt denies neck pain, numbness and tingling loss of sensation; Reason:Trauma; with Pain; Clinical Question(s): Fracture; Special Instructions: This is a protocol film and radiologist should call any findings to the Charge Nurse COMPARISON: None. FINDINGS: Mildly communicated fracture of the left mid clavicle, which is not significantly displaced but angulated with apex pointing superiorly. Intact AC joint. Mild soft tissue deformity with around fractured clavicle. IMPRESSION: Mildly comminuted, but angulated mid shaft left clavicular fracture. A critical result message (Giles) has been communicated via the Hub[employer] system on 04/30/2022 8:31 PM, Message ID [id number]. I have personally reviewed the images and I agree with this report. WSN: [id number] Ordering Physician: Violeta Hernandez Dictated By: Salma Vásquez DO Dictated Date/Time: 04/30/22 8:33 pm Reviewed By: Camron Pathak MD Signed By: Camron Pathak MD Signed Date/Time: 04/30/22 8:38 pm Transcribed By: JCAKIE Transcribed Date/Time: 04/30/22 8:31 pm Vital Signs Most recent to oldest 1 2 3 [Reference Range]: Oxygen Saturation [94-100 %] 100 % 100 % (04/30/22 8:13 PM) (04/30/22 7:11 PM) Pulse Rate [55-90 bpm] 82 bpm 78 bpm (04/30/22 8:13 PM) (04/30/22 7:11 PM) Blood Pressure [90-138/55-84 mm 128/72 mm Hg 131/77 mm Hg Hg] (04/30/22 8:13 PM) (04/30/22 7:11 PM) Respiratory Rate [16-30 br/min] 20 br/min 20 br/min 17 br/min (04/30/22 8:59 PM) (04/30/22 8:13 PM) (04/30/22 7:1 1 PM) Temperature [96.8-100.4 DegF] 98.7 DegF (04/30/22 7:11 PM) Mode of Delivery (Oxygen) Room air Room air (04/30/22 8:13 PM) (04/30/22 7:11 PM) Temperature Route Oral (04/30/22 7:11 PM)
--- NOTE | 2022-07-18 10:04 | ED_ITS ---
HPI - Extremity Problem General Chief complaint: Extremity Injury, Upper Stated complaint: Left pink and swollen arm Time Seen by Provider: 07/18/22 09:42 Source: patient Mode of arrival: ambulatory Limitations: no limitations History of Present Illness HPI Narrative: 87-year-old healthy male presents to ED for left 5th finger pain. Patient states while playing flag football while trying to l make a tackle he hurt his left pinky. Patient denies any other trauma. Patient denies hitting head or fall to the ground. He denies any left arm swelling and states that was a error by triage. Patient denies any head trauma, nausea, vomiting, dizziness, chest pain, shortness of breath, or abdominal pain. Related Data Previous Rx's Medication Instructions Recorded hydrocodone 5 mg-acetaminophen 325 1 tab PO Q8H PRN pain 5 days #15 09/28/21 mg tablet tabs acetaminophen 325 mg capsule 650 mg PO Q6H PRN pain 7 days #28 07/18/22 caps oxycodone 5 mg tablet 5 mg PO TID PRN pain 3 days #9 tabs 07/18/22 Allergies Allergy/AdvReac Type Severity Reaction Status Date / Time ibuprofen [From MOTRIN] Allergy Unknown SWELLING Verified 10/11/21 09:57 [facility] Past Medical History Medical History Right clavicle fracture Surgical History S/P appendectomy Social History Social History Alcohol intake: never Patient Tobacco Use Status: Never used Tobacco Second Hand Smoke Exposure: No Substance Use Type: Marijuana Advance Directives: No Advance Directives Information Provided: No Current occupational status: employed 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 Physical Exam Vital Signs: Vital Signs: Last Vital Signs Temp 98 F 07/18/22 07:10 Pulse 76 07/18/22 07:10 Resp 19 07/18/22 07:10 BP 141/70 H 07/18/22 07:10 Pulse Ox 99 07/18/22 07:10 O2 Del Method 07/18/22 07:10 BMI result Body Mass Index 21.7 Const: General: cooperative, healthy appearing, comfortable, no acute distress, well developed, alert, awake and Physically active Orientation/consciousness: oriented to time and patient oriented x3 HEENT: Head: Yes normal to inspection, Yes No palpable skull fracture present, Yes normocephalic, Yes atraumatic and No abrasion Eyes: General: appearance normal, both eyes and all related structures Neck: Neck: Yes normal visual inspection, Yes full ROM, Yes no lymphadenopathy, Yes no meningeal signs, Yes trachea midline, Yes supple, No anterior neck swelling and No tender Chest: Chest palpation & inspection: normal inspection of the chest and normal palpation of entire chest wall Resp: Effort & Inspection: normal respiratory effort and able to speak in complete sentences Auscultation: clear to auscultation bilaterally Cardio: Jugular venous distension: no JVD Heart sounds: S1 normal heart sound present and S2 normal heart sound present GI: Inspection: Yes normal to inspection and No abdominal wall ecchymosis Palpation (GI): Soft to palpation, not firm, nontender, no guarding and not rigid : General: No CVA tenderness and Yes no CVA tenderness Back/Spine/Pelvis: Back: no CVA tenderness, No CVA tenderness and No back tenderness Skin: General skin exam: no rashes or lesions noted and elasticity normal Neuro: General: oriented to time, patient oriented x3, gait normal, tone normal and no meningeal signs Cranial nerves: Yes CN's II-XII intact bilaterally Extrem: Other: Patient states left clavicle fracture that occurred 4 weeks ago that is being evaluated by Orthopedics. On exam negative for tenting Hand/finger images: 1. Tenderness on palpation and slight ecchymosis. Capillary refill is intact. Decreased range of motion due to pain. Rest of extremity normal. Motor/neuro/vascular exam of extremity intact. Psych: Appearance: grossly normal, well kempt and not disheveled Course Course Course Narrative: X-ray of hands ordered. Reevaluation(s) Reevaluation #1: Left finger shows 5th finger proximal fracture. Patient placed in finger splint Time: 10:10 MDM - Extremity (Nontraumatic) MDM Narrative Medical decision making narrative: Left 5th finger fracture Discharge Plan Discharge Clinical Impression: Finger fracture, left Patient Disposition: Home, Self-Care Instructions: Finger Fracture (ED) Additional Instructions: You will need follow-up with orthopedic surgery for a finger fracture. Also t here would evaluate your 4-week-old left clavicle fracture. Return to the ED for any swelling, redness, blue black discoloration, hotness, coldness, numbness, chest pain, shortness of breath, tenting of clavicle fracture, headache, dizziness, abdominal pain, or any other concerning symptoms. Prescriptions: New oxycodone 5 mg tablet 5 mg PO TID PRN (Reason: pain) 3 Days Qty: 9 0RF Rx Instructions: Partial Fill upon patient request. Side effect is drowsiness. Do not take at work or while driving acetaminophen 325 mg capsule 650 mg PO Q6H PRN (Reason: pain) 7 Days Qty: 28 0RF No Action hydrocodone-acetaminophen 5-325 mg tablet 1 tab PO Q8H PRN (Reason: pain) 5 Days Qty: 15 0RF Referrals: [facility] [place] Orthopedic Surgeons [Provider Group] (LEft 5th finger fracture and 4 week old left clavicle fracture.) Stand Alone Forms: Work/School Release Interventions: ED Discharge Assessment Last Done: 07/18/22 10:37 Discharge Date/Time: 07/18/22 10:30 Print Language: Czech
== END 2022-07-18 10:30 | disposition home or self-care (01) ==
PROVIDERS: Emergency Provider Student in an Organized Health Care Education/Training Program; PCP Internal Medicine
DX: S62.607A Fracture of unspecified phalanx of left little finger, initial encounter for closed fracture (principal); Y93.62 Activity, american flag or touch football; Y92.321 Football field as the place of occurrence of the external cause; Y99.9 Unspecified external cause status
CPT/HCPCS: 29130; 73140; 99283

== ENCOUNTER 2022-07-27 14:44 | Outpatient (REF) | payer MEDICAID, SELFPAY ==
--- NOTE | ~2022-07-27 | XR_ITS ---
EXAMINATION: XR HAND, LEFT CLINICAL INFORMATION: Left hand pain COMPARISON: None TECHNIQUE: PA, lateral, and oblique views of the left hand. FINDINGS: Oblique comminuted fracture of the 5th proximal phalanx. The fragments are mildly distracted. Joint spaces are maintained. No erosions or soft tissue calcifications. XR/XR hand LT min 3V IMPRESSION: Oblique comminuted fracture of the 5th proximal phalanx.
--- NOTE | ~2022-07-27 | XR_ITS ---
EXAMINATION: XR CLAVICLE, LEFT CLINICAL INFORMATION: Follow-up fracture left clavicle COMPARISON: Left clavicle 10/11/2021 TECHNIQUE: Two views of the left clavicle. FINDINGS: There is a slowly healing mid clavicular fracture with moderate cephalic angulation. No acute fractures or dislocation seen. There is moderate widening of left AC joint. The soft tissues are normal. XR/XR clavicle LT IMPRESSION: 1. Slowly healing mid left clavicular fracture with moderate cephalic angulation. 2. Moderate widening of left A.C. joint.
== END 2022-07-27 14:45 | disposition home or self-care (01) ==
LOC: HO.HOSX 14:44
PROVIDERS: Visit Provider Physician Assistant
DX: M89.8X1 Other specified disorders of bone, shoulder (principal); S62.327A Displaced fracture of shaft of fifth metacarpal bone, left hand, initial encounter for closed fracture; X58.XXXA Exposure to other specified factors, initial encounter; Y93.61 Activity, american tackle football; Y92.9 Unspecified place or not applicable; Y99.9 Unspecified external cause status
CPT/HCPCS: 73000; 73130; 99212

== ENCOUNTER 2022-08-01 07:03 | Day surgery (SDC) | payer MEDICAID, SELFPAY ==
--- NOTE | 2022-07-28 12:37 | P.CONAN_ITS ---
Documented by User: Alicia Sheffield NP 07/28/22 12:41 HPI - Anesthesia Eval Consult details Narrative: 27yo M for Left Small Finger Proximal Fx CRPP vs ORIF s/p hardware removal from clavicle 09/2021 with GA-ETT 7.5 [facility] Active Problems Active Problems: All Active Problems (Updated 07/27/22 @ 15:52 by Murphy Henry) Fracture of shaft of fifth metacarpal bone of left hand (Acute) Retained orthopedic hardware (Acute) Closed fracture of right clavicle with routine healing (Acute) Abnormal surgical wound (Acute) Right clavicle fracture (Acute) Past Medical History Medical History Right clavicle fracture Family History Family history of problems with anesthesia: No Surgical History Surgical History S/P appendectomy History of Problems with Anesthesia: No Social History Social History Alcohol intake: never Patient Tobacco Use Status: Never used Tobacco Second Hand Smoke Exposure: No Substance Use Type: Marijuana Current occupational status: employed 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 Meds Allergies Allergy/AdvReac Type Severity Reaction Status Date / Time ibuprofen [From MOTRIN] Allergy Unknown SWELLING Verified 07/27/22 14:38 acetaminophen [From Tylenol] Allergy Swelling Verified 08/01/22 07:31 Exam Exam Date and Time: July 28, 2022 1237 Assessment and Plan Assessment Anesthesia Assessment: Chart Reviewed Final Anesthetic Review Family History of Problems with Anesthesia: No History of Problems with Anesthesia: No Documented by User: Rodrigo Martin MD 08/01/22 17:53 [facility] Past Medical History Medical History Right clavicle fracture Surgical History Surgical History S/P appendectomy Social History Social History Alcohol intake: never Patient Tobacco Use Status: Never used Tobacco Second Hand Smoke Exposure: No Substance Use Type: Marijuana Current occupational status: employed 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 Meds Allergies Allergy/AdvReac Type Severity Reaction Status Date / Time ibuprofen [From MOTRIN] Allergy Unknown SWELLING Verified 07/27/22 14:38 acetaminophen [From Tylenol] Allergy Swelling Verified 08/01/22 07:31 Exam Airway Mallampati Class: II TM Dist: >3cm Neck ROM: Full Loose/Missing/Broken Teeth: Yes (Chipped upper front ) Heart: S1,S2 Lungs: b/l breath sounds Assessment and Plan Assessment Anesthesia Assessment: Anesthesia Plan Discussed Final Anesthetic Review NPO: Yes ASA Class: II Final Preanesthetic Review: Meds/Allgs Chart Reviewed, Consent Obtained/Reviewed and Anes Risks/Benef Reviewed Patient Risk: Intermediate Procedure Risk: Intermediate Anesthetic Plan Anesthetic Plan: GA Disposition: Standard PACU
[2022-08-01] VITALS (7 sets, daily range): BP systolic 115–130; BP diastolic 57–78; PULSE 53–65; RESP 16–18; TEMP 36.1–37.1; O2SAT 98–100; BMI 21.7
--- NOTE | ~2022-08-01 | FL_ITS ---
EXAMINATION: XR FLUOROSCOPY WITH IMAGES CLINICAL INFORMATION: Fracture fifth finger proximal phalanx COMPARISON: Hand radiographs 07/27/2022 TECHNIQUE: Fluoroscopy Supervised By: Dr. Ana Chang. Fluoroscopy Time: 1 minute 11 seconds. Cumulative Dose: 1.846 mGy. DAP: 0.1116 Gycm2. Images: 8. FINDINGS: Oblique fracture mid to distal fifth finger proximal phalanx is reduced with 2 cannulated screws. The hardware is intact. Fracture fragments are in near-anatomic alignment. No dislocation. FL/FL guidance in OR IMPRESSION: Status post open reduction internal fixation fifth finger proximal phalanx.
[2022-08-01] MEDS: Lactated Ringers 1,000 ML 100 ML IVCONT (07:57)
--- NOTE | 2022-08-01 09:31 | MHC.SHP ---
Pre-Procedural Eval Section A Date of Service: 08/01/22 The patient is an INPATIENT: No Changes since office visit: No Cold of Flu in the past 2 weeks, No New Medical Problems, No Changes in Medication and No Patient answered all questions The History & Physical has been completed within 30 days and I have reviewed it.: Yes Section B Chief Complaint: Displaced fracture of shaft of Finger proximal pha Allergies: Allergies Allergy/AdvReac Type Severity Reaction Status Date / Time ibuprofen [From MOTRIN] Allergy Unknown SWELLING Verified 07/27/22 14:38 acetaminophen [From Tylenol] Allergy Swelling Verified 08/01/22 07:31 Plan I have reviewed the history and physical and performed a pertinent physical examination on my patient. No changes have occurred unless specified.
--- NOTE | 2022-08-01 09:32 | W.PM.OPN ---
Operative Note Operative Note Date of Service: 08/01/22 Narrative: Operative Note Narrative: Preop diagnosis: Left small finger proximal phalanx fracture, intra-articular distally Postop diagnosis: Same Procedure: 1.left small finger proximal phalanx fracture open reduction internal fixation 2. Left ulnar nerve block Surgeon: Ana Chang MD Anesthesia: General Anesthesia Findings: left small finger proximal phalanx fracture Implants: AcuTrak 2 micro headless compression screws x2 Tourniquet time: 0 minutes EBL: 5.0 ml Specimen: none Drains: None Complications: None Disposition: Brought to the recovery room in stable condition Plan: Follow-up in 10-14 days for wound check, pre clinic radiographs,suture removal and placement in a short-arm finger spica cast. Indications: The patient is 27 years old with a left small finger proximal phalanx fracture sustained while playing football . The risks and benefits of operative treatment, including but not limited to risk of damage to blood vessels, nerves, tendons, infection, recurrence, persistent pain or numbness, incomplete resolution of preoperative symptoms, or need for further surgery were discussed with the patient and they wished to proceed with surgery. Procedure: Once consent was obtained patient was brought back to the operating suite and placed in the operating table in a supine position. . Perioperative antibiotics and anesthesia was administered by the anesthesia team. A tourniquet was applied to the proximal aspect of the left upper extremity and the limb was prepped and draped in a standard surgical fashion. The limb was elevated exsanguinated with Esmarch bandage and the tourniquet inflated to 250 mm of mercury for a total tourniquet time of 0 minutes. The mini C-arm was used during the case to assess our reduction and placement of all implants. a gentle closed reduction was performed and held in place using a 2 point reduction clamp. Two small lateral incisions were made on the radial aspect of the proximal phalanx. I dissected down to the level of the proximal phalanx. I 1st passed a guidewire from the AcuTrak 2 micro headless compression screw set transversely across the distal aspect of the fracture. Once satisfied with its position and measure mint I then reamed over the guidewire using the long slender Reamer for the micro headless compression screw set. I then used the short fat Reamer to open the near cortex. I then placed the appropriate length AcuTrak 2 micro headless compression screw. I was very satisfied with the placement of this screw in our reduction. A 2nd AcuTrak 2 micro headless compression screw was then placed proximal to this 1 in the same manner. Once satisfied with our fixation final radiographs were obtained after removal of the guidewire. I was satisfied with the reduction and placement of both implants on multiple fluoroscopic images. Clinically I was also very happy on with the improvement in his malrotation. [ ] At this point the tourniquet was deflated and hemostasis obtained with a brief period of local pressure and bipolar electrocautery. The wound was copiously irrigated with normal saline. The skin edges were reapproximated with 5-0 nylon suture. An ulnar nerve block was performed by infiltrating about the ulnar nerve at the wrist with some 0.5% plain ropivacaine for postop pain control. A sterile dressing and a volar splint extending from the fingertips of the long ring and small fingers to the volar forearm was then placed. The patient appears to have tolerated the procedure well and with no complications. All digits were well vascularized conclusion of the case.
[2022-08-01] MEDS: oxyCODONE HCl Immed Release 5 MG TABLET PO (11:39)
== END 2022-08-01 12:32 | disposition home or self-care (01) ==
PROVIDERS: Visit Provider Orthopaedic Surgery
PROC: (CPT 26735; principal; 2022-08-01 09:10)
DX: S62.617A Displaced fracture of proximal phalanx of left little finger, initial encounter for closed fracture (principal); R20.2 Paresthesia of skin; X58.XXXA Exposure to other specified factors, initial encounter; Y93.61 Activity, american tackle football; Y92.9 Unspecified place or not applicable; Y99.8 Other external cause status; Z88.8 Allergy status to other drugs, medicaments and biological substances
CPT/HCPCS: 26735; C1713; J0690; J1100; J1170; J2250; J2405; J2795; J3010

== ENCOUNTER 2022-08-15 11:12 | Outpatient (REF) | payer MEDICAID, SELFPAY ==
--- NOTE | ~2022-08-15 | XR_ITS ---
EXAMINATION: XR HAND, LEFT CLINICAL INFORMATION: Fracture COMPARISON: Previous x-rays most recent 07/27/2022 TECHNIQUE: PA, lateral, and oblique views of the left hand. FINDINGS: ORIF of comminuted fracture of the proximal phalanx of the fifth finger with 2 screws. Orthopedic hardware is intact. Alignment appears unchanged. There is adjacent soft tissue swelling. There are 2 new radiopaque densities that project over the distal tuft of the fifth finger. On the oblique and lateral view these project outside skin. 2 radiopaque densities seen in the webspace in between the second and third finger. These are new from previous exam and are difficult to localize. There is a 3 mm radiopaque density in the soft tissues adjacent to the first INTERMEDIATE joint that appears unchanged. XR/XR hand LT min 3V IMPRESSION: ORIF of fracture of the proximal phalanx of the fifth finger. Multiple radiopaque soft tissue densities as described above.
== END 2022-08-15 11:13 | disposition home or self-care (01) ==
LOC: HO.HOSX 11:12
PROVIDERS: Visit Provider Orthopaedic Surgery
DX: M79.642 Pain in left hand (principal)
CPT/HCPCS: 73130

== ENCOUNTER 2022-08-29 15:57 | Outpatient (REF) | payer MEDICAID, SELFPAY | END 2022-08-29 15:58 | disposition home or self-care (01) | LOC: HO.HOSX 15:57 | PROVIDERS: Visit Provider Orthopaedic Surgery | DX: Z13.89 Encounter for screening for other disorder (principal) ==

== ENCOUNTER 2023-09-16 11:31 | Emergency (ER) | payer OTHER, SELFPAY ==
--- NOTE | 2023-09-16 12:15 | ED_ITS ---
HPI - General Adult General Chief complaint: Nausea/Vomiting/Diarrhea Stated complaint: throwing up/ mult issues Time Seen by Provider: 09/16/23 14:43 Source: patient Mode of arrival: ambulatory Limitations: no limitations History of Present Illness HPI narrative: 28 year old male with no significant pmhx presents to the ED today for evaluation of black tarry stool x3 days. Patient with diagnosed with H pylori by his primary care provider 3 weeks ago. Since this time has been taking Pepto-Bismol, acidophilus, doxycycline and metronidazole daily. He now reports nausea and black tarry stools x3 days. Additionally He does not have a follow- up with his PCP for another 2 months. Denies fever, chills, vomiting, hematemesis, flank pain, dysuria, hematuria, bright red blood per rectum, constipation, diarrhea. Partner at bedside states that they were advised to come to the ED for evaluation if stool becomes black or tarry. Denies sick contacts. Last BM this morning. Related Data Previous Rx's Medication Instructions Recorded acetaminophen 325 mg capsule 650 mg (2 x 325 mg) PO Q6H PRN 07/18/22 pain 7 days #28 caps ondansetron 4 mg disintegrating 4 mg PO DAILY PRN nausea and 09/16/23 tablet vomiting 5 days #14 tabs Allergies Allergy/AdvReac Type Severity Reaction Status Date / Time ibuprofen [From MOTRIN] Allergy Unknown SWELLING Verified 08/16/22 11:52 acetaminophen [From Tylenol] Allergy Swelling Verified 08/16/22 11:52 Review of Systems 2 Review of Systems: Constitutional: No fever, chills, fatigue, night sweats, weight changes ENT/Mouth: No ear pain, hearing loss, nasal congestion, sinus pain, rhinorrhea, sore throat Eyes: No eye pain, swelling, redness, vision changes, discharge Cardio: No chest pain, palpitations, CAGE, orthopnea, peripheral edema Pulm: No SOB, cough, sputum, wheezing, dyspnea, hemoptysis GI: No nausea, vomiting, hematemesis, abdominal pain, diarrhea, constipation, hematochezia, +melena : No irregular bleeding, dysuria, frequency, urgency, hesitancy, hematuria, flank pain, urinary flow changes, urinary incontinence or retention MSK: No back pain, neck pain, joint pain, myalgias Skin: No lesions, rashes Neuro: No weakness, numbness, paresthesias, LOC, dizziness, headache Psych: No anxiety/panic, depression, SI/HI, AH/VH Heme/Lymph: No bruising, bleeding, lymphadenopathy Endocrine: No polyuria, polydipsia, temperature intolerance All other systems reviewed and are negative. [facility] Past Medical History Attestation statement: The following information was validated with the patient. 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 Physical Exam ED Vital Signs: Vital Signs - 24 hr 09/16/23 12:18 09/16/23 15:12 Temperature 97.3 F Pulse Rate 60 63 Respiratory Rate 17 18 Blood Pressure 123/88 114/69 Pulse Oximetry 96 99 Oxygen Delivery Method Room Air BMI result Body Mass Index 21.8 Vital signs stable, afebrile Const General: cooperative, healthy appearing, comfortable, no acute distress, alert and awake Orientation/consciousness: patient oriented x3 Limitations: no limitations Eyes General: appearance normal, both eyes and all related structures Conjunctivae: conjunctivae normal Sclerae: sclerae normal Pupils: Equal, round and reactive pupils present Neck Neck: Yes normal visual inspection and Yes no lymphadenopathy Resp Effort & Inspection: normal respiratory effort, able to speak in complete sentences, no respiratory distress, no tripod positioning and no use of accessory muscles Auscultation: clear to auscultation bilaterally Cardio Rate: regular rate Rhythm: regular rhythm Peripheral pulses: radial pulses present GI Other: + abdomen soft, nondistended, nontender to palpation, normoactive bowel sounds x4, no rebound tenderness or guarding. 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 Normal rectal sphincter tone. No external masses or lesions. Stool is normal in appearance. Guaiac negative. Inspection: Yes normal to inspection General: Yes no CVA tenderness Back/Spine/Pelvis Back: no CVA tenderness Skin General skin exam: no rashes or lesions noted Neuro General: patient oriented x3, gait normal and moves all extremities Cranial nerves: Yes Equal, round and reactive pupils present Extrem General: Yes normal to inspection Course Course Course Narrative: RME- 28-year-old male presents for evaluation of abdominal pain, nausea and black stool. He reports that he was diagnosed with H pylori and is being treated. He states that he has been taking Pepto-Bismol. plan for labs Reevaluation(s) Reevaluation #1: 1445-- no leukocytosis. H&H stable. Elevated BUN, creatinine within normal limits. Lipase WNL. Normal renal function. Normal liver function. 1536-- JAKE performed with [facility] in room. No external masses or lesions. No palpable internal masses. Stool normal in coloration. Guaiac negative. Urine negative for infection. > will trial GI cocktail and re-evaluate. 1625-- on re-evaluation, patient states he is feeling much better after GI cocktail. I informed him of his unremarkable workup. Dark stools are likely secondary to Pepto-Bismol intake. I am hesitant to make any changes to his regimen as he currently follows with his primary care doctor for H pylori. Advised him to call his doctor Monday morning to see if he can get an earlier appointment as they may have to do an upper endoscopy. Will send patient home with Emilyabimbola for nausea. Patient states that he would like to go home as he is hungry. Patient has remained stable throughout ED visit today. Discussed worrisome signs symptoms of when to return to the ED. All questions answered at this time. Patient is agreeable with disposition and stable for discharge. Medications Administered Discontinued Medications Generic Name Dose Route Start Last Admin Trade Name Freq PRN Reason Stop Dose Admin Al Hydroxide/Mg Hydroxide 30 ml 09/16/23 15:34 09/16/23 16:00 Magnesium Hydrox/Alum Hydrox 30 Ml Oral.Susp PO 09/16/23 15:35 30 ml ONCE ONE Administration Belladonna Alkaloids/Phenobarbital 10 ml 09/16/23 15:34 09/16/23 16:00 Phenobarb/Hyoscy/Atropine/Scop 10 Ml Elixir PO 12/30/23 15:35 10 ml ONCE ONE Administration Ondansetron HCl 4 mg 09/16/23 15:34 09/16/23 16:00 Ondansetron Odt 4 Mg Tab.Barrettdis ANATOLYINGU 09/16/23 15:35 4 mg ONCE ONE Administration Procedures Stool Hemoccult Procedural Steps Taken: stool placed in appropriate test area, developer placed on stool and control areas and controls appropriately positive and negative Hemoccult result: negative Medical Decision Making Medical Decision Making [facility] Narrative: 28 year old male with no significant pmhx presents to the ED today for evaluation of black tarry stool x3 days. Vital signs stable. Patient is nontoxic appearing in no acute distress. Lungs CTA bilaterally. RRR. Abdomen soft, nontender, nondistended, no rebound tenderness or guarding, normoactive bowel sounds x4. JAKE without external or internal masses, stool is normal in coloration, guaiac negative. Clinical concern for medication side effect, gastritis, H pylori, PUD. Unlikely small bowel obstruction, ischemic bowel, diverticulitis, diverticulosis, toxic megacolon, C diff. Plan for labs, GI cocktail, UA. Differential Diagnosis Differential Diagnoses: The differential diagnosis associated with the presentation includes as above. Admission/Observation Not indicated. Lab Data [facility] Lab Attestation statement: I reviewed the patient's lab results. As above. 09/16/23 12:24 09/16/23 12:24 Labs: Lab Results 09/16/23 09/16/23 Range/Units 12:24 15:18 WBC 3.7 L (4.8-10.8) X10*3/uL RBC 4.96 (4.60-5.80) X10*6/uL Hgb 13.8 L (14.0-18.0) g/dl Hct 40.9 L (42.0-52.0) % MCV 82.5 (80.0-98.0) fL MCH 27.8 (27.0-33.0) pg MCHC 33.7 (31.0-36.0) g/dl RDW 13.3 (11.0-16.0) % Plt Count 174 (160-400) X10*3/uL MPV 8.9 L (9.4-12.4) fL Immature Gran % (Auto) 0.0 (0.0-0.4) % Neut % (Auto) 54.4 (45-73) % Lymph % (Auto) 36.4 (20-40) % [place] % (Auto) 7.0 (2-11) % Eos % (Auto) 2.2 (0-4) % Baso % (Auto) 0.0 (0-2) % Lymph # (Auto) 1.4 (1.2-4.9) X10*3/uL [place] # (Auto) 0.3 (0.1-1.2) X10*3/uL Eos # (Auto) 0.1 (0.0-0.4) X10*3/uL Baso # (Auto) 0.0 (0.0-0.2) X10*3/uL Abs Immat Gran (auto) 0.00 (0.00-0.03) X10*3/uL Absolute Neuts (auto) 2.0 (2.0-8.3) x10*3/uL Absolute Nucleated RBC 0.000 (0.0-0.012) X10*3/uL Nucleated RBC % (auto) 0.0 (0.0-0.2) /100WBC PT 12.5 (11.1-13.3) SEC INR 1.0 (0.9-1.1) APTT 30.3 (26.0-36.4) SEC Sodium 143 (135-145) mmol/L Potassium 4.0 (3.3-5.1) mmol/L Chloride 108 (96-108) mmol/L Carbon Dioxide 28 (22-29) mmol/L Anion Gap 11 L (12-20) BUN 18 H (9-16) mg/dL Creatinine 1.06 (0.5-1.4) mg/dL Estim Creat Clear Calc 109.8 Estimated GFR > 60 Random Glucose 94 (60-115) mg/dL Calcium 9.5 (8.4-10.2) mg/dL Total Bilirubin 0.8 (0.0-1.0) mg/dL AST 23 (5-37) U/L ALT 17 (0-40) U/L Alkaline Phosphatase 48 (39-117) U/L Total Protein 7.0 (6.5-8.0) g/dL Albumin 4.4 (3.5-5.0) g/dL Lipase 13 (8-78) U/L Urine Color Yellow Urine Appearance Cloudy Urine pH 7.5 (5.0-9.0) Ur Specific [place] 1.025 (1.005-1.025) Urine Protein Negative (Neg-Trace) mg/dL Urine Glucose (UA) Negative (Negative) mg/dL Urine Ketones Negative (Negative) mg/dL Urine Blood Negative (Negative) Urine Nitrite Negative (Negative) Ur Leukocyte Esterase Negative (Negative) Stool Occult Blood NEGATIVE (NEGATIVE) Independent Historian Clinical information obtained from an independent historian. History obtained from or confirmed by: Other (girl friend) External Record Review External record reviewed: Inpatient record Prescription Management I considered prescription management with: Other (Antiemetics) Chronic Conditions Patient?s care impacted by: Other (Gastric ulcer, H pylori) Social Determinants Patient?s care significantly limited by Social Determinants of Health including: Other Social Determinant of Health Critical Care Time Critical Care Time Critical Care Time: No Discharge Plan Discharge Clinical Impression: Dark stools, H. pylori infection Patient Disposition: Home, Self-Care Instructions: Acute Diarrhea (ED), Upper GI Series (DC) Additional Instructions: Your labs today are reassuring. Your urine was negative for infection or blood. Your stool was negative for blood. Your stool is likely darker in coloration secondary to Pepto-Bismol. Zofran has been sent to your pharmacy. You may take this as needed for nausea. You may also take [id number] Maalox. You received a dose of this in the emergency department today. Please call your primary care provider Monday morning and let them know that you were seen in the ED. Your PCP may want to order an upper endoscopy as your symptoms are not resolving with your current medication regimen. You may also follow-up with a GI specialist. YOU HAVE BEEN PROVIDED WITH A REFERRAL. CALL THEM TO MAKE AN APPOINTMENT. THEY WILL NOT CALL YOU. If symptoms persist or worsen please return to the emergency department. The case of an emergency call 911. Prescriptions: New ondansetron 4 mg tablet,disintegrating 4 mg PO DAILY PRN (Reason: nausea and vomiting) 5 Days Qty: 14 0RF No Action acetaminophen 325 mg capsule 650 mg PO Q6H PRN (Reason: pain) 7 Days Qty: 28 0RF Referrals: [facility] [place] [place] [facility] [Provider Group] Jairon Jerez MD [Primary Care Provider] -
[2023-09-16 12:18] VITALS: BP 123/88; PULSE 60; RESP 17; TEMP 36.3; O2SAT 96; BMI 21.8
[2023-09-16 12:28] LABS: MANUAL DIFF FLAG NO
[2023-09-16 12:33] LABS: Eosinophils Absolute Auto 0.1 X10*3/uL (0.0-0.4); Eosinophils Percent Auto 2.2 % (0-4); Hematocrit 40.9 % (42.0-52.0); Hemoglobin 13.8 g/dl (14.0-18.0); Lymphocytes Absolute Auto 1.4 X10*3/uL (1.2-4.9); Lymphocytes Percent Auto 36.4 % (20-40); Mean Corpuscular HGB Conc 33.7 g/dl (31.0-36.0); Mean Corpuscular Hemoglobin 27.8 pg (27.0-33.0); Mean Corpuscular Volume 82.5 fL (80.0-98.0); Mean Platelet Volume 8.9 fL (9.4-12.4); Monocytes Absolute Auto 0.3 X10*3/uL (0.1-1.2); Neutrophils Percent Auto 54.4 % (45-73); Platelet Count 174 X10*3/uL (160-400); Red Blood Count 4.96 X10*6/uL (4.60-5.80); Red Cell Distribution Width 13.3 % (11.0-16.0); White Blood Count 3.7 X10*3/uL (4.8-10.8)
[2023-09-16 12:35] LABS: Prothrombin Time 12.5 SEC (11.1-13.3)
[2023-09-16 12:37] LABS: Partial Thromboplastin Time 30.3 SEC (26.0-36.4)
[2023-09-16 12:43] LABS: Alanine Aminotransferase 17 U/L (0-40); Albumin Level 4.4 g/dL (3.5-5.0); Alkaline Phosphatase 48 U/L (39-117); Anion Gap 11 (12-20); Aspartate Amino Transferase 23 U/L (5-37); Bilirubin Total 0.8 mg/dL (0.0-1.0); Blood Urea Nitrogen 18 mg/dL (9-16); Calcium 9.5 mg/dL (8.4-10.2); Carbon Dioxide 28 mmol/L (22-29); Chloride 108 mmol/L (96-108); Creatinine Clr Calc Pharmacy 109.8; Estimated Glomerular Filt Rate > 60; Glucose Random 94 mg/dL (60-115); Lipase 13 U/L (8-78); Sodium 143 mmol/L (135-145)
[2023-09-16 15:12] VITALS: BP 114/69; PULSE 63; RESP 18; O2SAT 99
[2023-09-16 15:26] LABS: OBS Int Ctl Valid YES; OBS1 NEGATIVE (NEGATIVE)
[2023-09-16 15:27] LABS: Appearance Urine Cloudy; Color Urine Yellow; Glucose Urine UA Negative (Negative); Leukocyte Esterase Urine Negative (Negative); Nitrite Urine Negative (Negative); PH 7.5 (5.0-9.0); Specific Gravity - Urine 1.025 (1.005-1.025); Urine Blood Negative (Negative); Urine Ketones Negative (Negative); Urine Protein Negative (Neg-Trace)
[2023-09-16] MEDS: Magnesium Hydrox/Alum Hydrox 30 ML ORAL.SUSP PO (16:00)
[2023-09-16] MEDS: PHENobarb/Hyoscy/Atropine/Scop 10 ML ELIXIR PO (16:00)
[2023-09-16] MEDS: Ondansetron ODT 4 MG TAB.RAPDIS TRANSLINGU (16:00)
--- NOTE | 2023-09-16 16:17 | PC.NURSE ---
pt aox4. ambulatory. reporting burning pain in abd. per pt, he tested positive for h. pylori and is taking antibiotics but they are not helping. endorses black stool. medicated per mar. plan of care ongoing
== END 2023-09-16 16:55 | disposition home or self-care (01) ==
PROVIDERS: Physician Assistant; Physician Assistant Medical; Emergency Provider Emergency Medicine; PCP Student in an Organized Health Care Education/Training Program
DX: A04.8 Other specified bacterial intestinal infections (principal); R11.2 Nausea with vomiting, unspecified; Z79.899 Other long term (current) drug therapy
CPT/HCPCS: 36415; 80053; 81003; 82272; 83690; 85025; 85610; 85730; 99283; 99284

== ENCOUNTER 2023-11-02 06:51 | Emergency (ER) | payer OTHER, MEDICAID, SELFPAY ==
--- NOTE | ~2023-11-02 | CT_ITS ---
EXAMINATION: CT ABDOMEN AND PELVIS WITH CONTRAST CLINICAL INFORMATION: Abdominal pain. COMPARISON: None available. TECHNIQUE: Multidetector volumetric images were obtained from the superior aspect of the liver through the pubic symphysis following administration 85 mL of Omnipaque 350 intravenous contrast. Sagittal and coronal reformatted images were obtained on the technologist's workstation. Oral contrast: No This CT examination was performed using dose optimization techniques as appropriate, variously including the following: *Automated exposure control *Adjustment of mA and/or kV according to patient size (this includes techniques or standardized protocols for targeted exams where dose is matched to indication/reason for exam; i.e. extremities or head) *Use of iterative reconstruction technique DLP: 412 mGy-cm FINDINGS: LUNG BASES: No pleural or pericardial effusion. LIVER, GALLBLADDER, AND BILIARY TREE: The liver is normal in size and contour. No focal hepatic lesion or biliary ductal dilatation is present. The gallbladder is unremarkable with no evidence of radiopaque gallstones, gallbladder wall thickening, or obvious pericholecystic inflammatory changes. PANCREAS: Unremarkable. SPLEEN: Unremarkable. ADRENAL GLANDS: Unremarkable. KIDNEYS AND URETERS: The kidneys are normal in size, shape, and attenuation. No hydronephrosis. No perinephric stranding. BLADDER: Underdistended. GASTROINTESTINAL TRACT: There is fluid distending the rectosigmoid colon. There is wall thickening of the mid small bowel. There is mesenteric hyperemia. The appendix may be surgically absent. No free fluid in the abdomen or pelvis. ABDOMINAL WALL: No significant hernia is appreciated. LYMPH NODES: Few subcentimeter mesenteric lymph nodes. VASCULAR: Normal caliber abdominal aorta. PELVIC VISCERA: Unremarkable. OSSEOUS STRUCTURES: No destructive bone lesions. CT/CT abdomen pelvis w IV con IMPRESSION: Marked wall thickening of the mid small bowel. Mesenteric hyperemia. This most likely represents enteritis. Infectious and inflammatory etiologies should be considered.
[2023-11-02 06:59] VITALS: BP 132/72; PULSE 72; RESP 19; TEMP 36.6; O2SAT 99; BMI 21.8
--- NOTE | 2023-11-02 07:02 | ED.GENADULT ---
HPI - General Adult General Chief complaint: Abdominal Pain Stated complaint: Abd pain Time Seen by Provider: 11/02/23 07:02 Source: patient Mode of arrival: ambulatory Limitations: no limitations History of Present Illness HPI narrative: Patient is a 28 year old assigned male at with a history of h. pylori diagnosed by his PCP presenting to the emergency department today with nausea, vomiting, diarrhea, and abdominal pain. Patient states that he was treated for h. pylori for similar symptoms and the symptoms resolved. However, over the last day the patient has had symptoms again including nausea, vomiting, diarrhea, and abdominal pain. Patient denies any dizziness, lightheadedness, fever, chills, blurry vision, double vision, loss of vision, chest pain, difficulty breathing, shortness of breath, back pain, night sweats, pain with urination, increased urinary frequency, increased urinary urgency, blood in his urine or stool, syncope or a near syncopal episode, recent trauma or falls, bowel incontinence, bladder incontinence, bowel retention, bladder retention, or any other complaints at this time. Onset (ago): day(s) Location: abdomen Severity: mild Severity scale (1-10): 3 Quality: aching and dull Pain Consistency: constant Relieving factors: none Exacerbating factors: none Associated symptoms: nausea/vomiting Treatments prior to arrival: none Related Data Previous Rx's Medication Instructions Recorded acetaminophen 325 mg capsule 650 mg (2 x 325 mg) PO Q6H PRN 07/18/22 pain 7 days #28 caps ondansetron 4 mg disintegrating 4 mg PO DAILY PRN nausea and 09/16/23 tablet vomiting 5 days #14 tabs ondansetron 4 mg disintegrating 4 mg PO Q8H 3 days #9 tabs 11/02/23 tablet Allergies Allergy/AdvReac Type Severity Reaction Status Date / Time ibuprofen [From MOTRIN] Allergy Unknown SWELLING Verified 11/02/23 06:58 acetaminophen [From Tylenol] Allergy Swelling Verified 11/02/23 06:58 Review of Systems Constitutional: Constitutional: Reports no additional constitutional complaints, Denies chills, Denies fever(s) and Denies night sweats Eyes: Eyes: Reports no additional eye complaints, Denies blurry vision, Denies change in vision, Denies diplopia, Denies eye discharge, Denies loss of vision and Denies eye pain ENT: Denies dizziness Cardiovascular: Cardiovascular: Reports no additional cardiovascular complaints, Denies chest pain, Denies lightheadedness, Denies Loss of Consciousness and Denies dyspnea Respiratory: Respiratory: Reports no additional respiratory complaints and Denies dyspnea Gastrointestinal: Gastrointestinal: Reports no additional gastrointestinal complaints, Reports abdominal pain, Denies melena, Denies hematochezia, Denies change in bowel habits, Denies change in stool character, Reports diarrhea, Reports nausea and Reports vomiting Genitourinary: Genitourinary: Reports no additional male genitourinary complaints, Denies hematuria, Denies oliguria, Denies difficulty urinating, Denies dysuria, Denies urinary frequency, Denies urinary hesitancy, Denies urinary incontinence and Denies urinary urgency Musculoskeletal: Musculoskeletal: Reports no additional musculoskeletal complaints, Denies numbness and Denies tingling Neurologic: Denies dizziness, Denies loss of vision, Denies numbness and Denies tingling Psychiatric: Psychiatric: Reports no additional psychiatric complaints Endocrine: Endocrine: Reports no additional endocrine complaints Hematologic/Lymphatic: Hematologic/Lymphatic: Reports no additional hematologic/lymphatic complaints Allergic/Immunologic: Allergic/Immunologic: Reports no additional allergic/immunologic complaints [facility] Past Medical History Attestation statement: The following information was validated with the patient. 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 Physical Exam ED Vital Signs: Vital Signs - 24 hr 11/02/23 06:59 11/02/23 07:08 11/02/23 08:04 Temperature 98 F 97.6 F Pulse Rate 72 70 Respiratory Rate 19 18 16 Blood Pressure 132/72 139/93 H Pulse Oximetry 99 99 Oxygen Delivery Method Room Air Room Air 11/02/23 09:36 Temperature 98 F Pulse Rate 66 Respiratory Rate 18 Blood Pressure 109/61 Pulse Oximetry 98 Oxygen Delivery Method Room Air BMI result Body Mass Index 21.8 Const General: cooperative, no acute distress, alert and awake Nutritional Appearance: well nourished Orientation/consciousness: patient oriented x3 Limitations: no limitations HENMT Head: Yes normal to inspection and Yes atraumatic Ears: hearing grossly normal bilaterally and external ears normal General nose exam: Normal external nose present, no nasal discharge noted and no epistaxis Face and sinus: Yes normal facial exam, No abrasion and No laceration Mouth: Normal oral and palatal mucosa present, no drooling and no muffled voice Eyes General: appearance normal, both eyes and all related structures Periorbital: periorbital findings normal Eyelids: Yes eyelids normal Conjunctivae: conjunctivae normal Pupils: Equal, round and reactive pupils present EOM: EOMs intact bilaterally Neck Neck: Yes normal visual inspection, Yes full ROM and Yes no lymphadenopathy Chest Chest palpation & inspection: normal inspection of the chest Resp Effort & Inspection: normal respiratory effort and able to speak in complete sentences Auscultation: clear to auscultation bilaterally GI Inspection: Yes normal to inspection Palpation (GI): Soft to palpation, not firm, nontender and no guarding Neuro General: patient oriented x3 and moves all extremities Cranial nerves: Yes Equal, round and reactive pupils present Cognition (Neuro): normal cognition Motor exam (neuro): 5/5 motor strength present throughout Sensory Exam: Normal double simultaneous stimulation for sensation Coordination: [id number] test normal Extrem General: Yes normal to inspection, Yes full ROM and Yes capillary refill normal Psych Appearance: grossly normal Mental Status: mental status grossly normal Affect: normal affect Attitude: cooperative Thought process: Normal thought process present Thought content: Normal thought content present Insight: Good insight present (Psych) Medications Administered Discontinued Medications Generic Name Dose Route Start Last Admin Trade Name Freq PRN Reason Stop Dose Admin Al Hydroxide/Mg Hydroxide 15 ml 11/02/23 07:28 11/02/23 08:02 Magnesium Hydrox/Alum Hydrox 30 Ml Oral.Susp PO 11/02/23 07:29 15 ml ONCE ONE Administration Sodium Chloride 1,000 mls @ 999 mls/hr 11/02/23 07:30 11/02/23 08:10 Ns IV 11/02/23 08:30 999 mls/hr .Q1H1M FERMIN Administration Iohexol 100 ml 11/02/23 08:30 11/02/23 08:35 Iohexol 350 Mg/Ml 100 Ml Infus..Btl IV 11/02/23 08:31 85 ml ONCE ONE Administration Morphine Sulfate 4 mg 11/02/23 07:27 11/02/23 08:04 Morphine Sulfate 4 Mg/Ml Cartridge IVPUSH 11/02/23 07:28 4 mg ONCE ONE Administration Protocol Ondansetron HCl 4 mg 11/02/23 07:27 11/02/23 08:03 Ondansetron Hcl 4 Mg/2 Ml Vial IVPUSH 11/02/23 07:28 4 mg ONCE ONE Administration Pantoprazole Sodium 40 mg 11/02/23 07:27 11/02/23 08:05 Pantoprazole Sodium 40 Mg/10 Ml Vial IVPUSH 11/02/23 07:28 40 mg ONCE ONE Administration Medical Decision Making Medical Decision Making [facility] Narrative: Patient is a 28 year old assigned male at with a history of h. pylori presenting to the emergency department today with abdominal pain. Patient's physical exam was unremarkable. Patient's blood work was unremarkable. Patient's urine showed no acute process. Patient's CT abdomen/pelvis showed enteritis. I explained my physical exam findings as well as all test results to the patient. I answered all questions asked by the patient. I stressed the importance of the patient taking his medication as prescribed. I stressed the importance of the patient following up with his primary care provider and a GI specialist. Patient states that he has an appointment in January with a GI specailist. I stressed the importance of the patient returning to the emergency department immediately if his symptoms were to worsen or if he were to develop any dizziness, shortness of breath, difficulty breathing, chest pain, blurry vision, loss of vision, nausea, vomiting, abdominal pain, fever, chills, back pain, or any other complaints. Patient verbalized agreement and understanding with this treatment plan and discharge. Differential Diagnosis Differential Diagnoses: The differential diagnosis associated with the presentation includes Enteritis Abdominal pain Nausea Vomiting Diarrhea Admission/Observation Consideration of admission/observation: Escalation of care including admission/observation considered Patient would have been admitted to the hospital had his work up had any findings where hospital admission was appropriate and his clinical presentation warranted hospital admission. Lab Data [facility] Lab Attestation statement: I reviewed the patient's lab results. My interpretation of these results are in the MDM Rationale portion of this note. 11/02/23 07:24 11/02/23 07:24 Labs: Lab Results 11/02/23 11/02/23 Range/Units 07:24 09:38 WBC 8.5 (4.8-10.8) X10*3/uL RBC 5.27 (4.60-5.80) X10*6/uL Hgb 15.0 (14.0-18.0) g/dl Hct 43.9 (42.0-52.0) % MCV 83.3 (80.0-98.0) fL MCH 28.5 (27.0-33.0) pg MCHC 34.2 (31.0-36.0) g/dl RDW 13.5 (11.0-16.0) % Plt Count 203 (160-400) X10*3/uL MPV 9.1 L (9.4-12.4) fL Immature Gran % (Auto) 0.2 (0.0-0.4) % Neut % (Auto) 81.2 H (45-73) % Lymph % (Auto) 12.9 L (20-40) % Thayer % (Auto) 4.3 (2-11) % Eos % (Auto) 1.4 (0-4) % Baso % (Auto) 0.0 (0-2) % Lymph # (Auto) 1.1 L (1.2-4.9) X10*3/uL Thayer # (Auto) 0.4 (0.1-1.2) X10*3/uL Eos # (Auto) 0.1 (0.0-0.4) X10*3/uL Baso # (Auto) 0.0 (0.0-0.2) X10*3/uL Abs Immat Gran (auto) 0.02 (0.00-0.03) X10*3/uL Absolute Neuts (auto) 6.9 (2.0-8.3) x10*3/uL Absolute Nucleated RBC 0.000 (0.0-0.012) X10*3/uL Nucleated RBC % (auto) 0.0 (0.0-0.2) /100WBC Sodium 143 (135-145) mmol/L Potassium 4.0 (3.3-5.1) mmol/L Chloride 109 H (96-108) mmol/L Carbon Dioxide 28 (22-29) mmol/L Anion Gap 10 L (12-20) BUN 16 (9-16) mg/dL Creatinine 1.10 (0.5-1.4) mg/dL Estim Creat Clear Calc 105.8 Estimated GFR > 60 Random Glucose 99 (60-115) mg/dL Calcium 9.3 (8.4-10.2) mg/dL Total Bilirubin 1.4 H (0.0-1.0) mg/dL AST 31 (5-37) U/L ALT 19 (0-40) U/L Alkaline Phosphatase 61 (39-117) U/L Total Protein 7.4 (6.5-8.0) g/dL Albumin 4.6 (3.5-5.0) g/dL Lipase 15 (8-78) U/L Urine Color Yellow Urine Appearance Clear Urine pH 5.5 (5.0-9.0) Ur Specific Smoot >= 1.030 H (1.005-1.025) Urine Protein Negative (Neg-Trace) mg/dL Urine Glucose (UA) Negative (Negative) mg/dL Urine Ketones Negative (Negative) mg/dL Urine Blood Negative (Negative) Urine Nitrite Negative (Negative) Ur Leukocyte Esterase Negative (Negative) COVID-19 (MANPRETE) Negative (Negative) COVID-19 Clin Com See Note Influenza Type A (PRECIOUS) Negative (Negative) Influenza Type B (PRECIOUS) Negative (Negative) Influenza A & B Note See Note Independent Interpretation I performed an independent interpretation of an: CT Scan Interpretation: My interpretation is in agreement with the radiologist's impression of this imaging study. EXAMINATION: CT ABDOMEN AND PELVIS WITH CONTRAST CLINICAL INFORMATION: Abdominal pain. COMPARISON: None available. TECHNIQUE: Multidetector volumetric images were obtained from the superior aspect of the liver through the pubic symphysis following administration 85 mL of Omnipaque 350 intravenous contrast. Sagittal and coronal reformatted images were obtained on the technologist's workstation. Oral contrast: No This CT examination was performed using dose optimization techniques as appropriate, variously including the following: *Automated exposure control *Adjustment of mA and/or kV according to patient size (this includes techniques or standardized protocols for targeted exams where dose is matched to indication/reason for exam; i.e. extremities or head) *Use of iterative reconstruction technique DLP: 412 mGy-cm FINDINGS: LUNG BASES: No pleural or pericardial effusion. LIVER, GALLBLADDER, AND BILIARY TREE: The liver is normal in size and contour. No focal hepatic lesion or biliary ductal dilatation is present. The gallbladder is unremarkable with no evidence of radiopaque gallstones, gallbladder wall thickening, or obvious pericholecystic inflammatory changes. PANCREAS: Unremarkable. SPLEEN: Unremarkable. ADRENAL GLANDS: Unremarkable. KIDNEYS AND URETERS: The kidneys are normal in size, shape, and attenuation. No hydronephrosis. No perinephric stranding. BLADDER: Underdistended. GASTROINTESTINAL TRACT: There is fluid distending the rectosigmoid colon. There is wall thickening of the mid small bowel. There is mesenteric hyperemia. The appendix may be surgically absent. No free fluid in the abdomen or pelvis. ABDOMINAL WALL: No significant hernia is appreciated. LYMPH NODES: Few subcentimeter mesenteric lymph nodes. VASCULAR: Normal caliber abdominal aorta. PELVIC VISCERA: Unremarkable. OSSEOUS STRUCTURES: No destructive bone lesions. CT/CT abdomen pelvis w IV con IMPRESSION: Marked wall thickening of the mid small bowel. Mesenteric hyperemia. This most likely represents enteritis. Infectious and inflammatory etiologies should be considered. Dictated By: Omid Dunn MD Signed By: Electronically signed by Omid Dunn MD 11/02/23 0907 Radiology Impression Discussion of test interpretation with radiology: I have reviewed the radiologist's reading. Critical Care Time Critical Care Time Critical Care Time: Yes Total Critical Care Time: 40 Attestation: I spent 40 minutes of Critical Care Time with this patient. This does not include time spent on separately reported billable procedures. Discharge Plan Discharge Clinical Impression: Enteritis Patient Disposition: Home, Self-Care Instructions: Enteritis (ED) Additional Instructions: Follow up with your primary care provider and a GI Specialist. Return to the emergency department immediately if your symptoms worsen or if you develop any dizziness, shortness of breath, difficulty breathing, chest pain, blurry vision, loss of vision, nausea, vomiting, abdominal pain, fever, chills, back pain, or any other complaints. Prescriptions: New ondansetron 4 mg tablet,disintegrating 4 mg PO Q8H 3 Days Qty: 9 0RF No Action acetaminophen 325 mg capsule 650 mg PO Q6H PRN (Reason: pain) 7 Days Qty: 28 0RF ondansetron 4 mg tablet,disintegrating 4 mg PO DAILY PRN (Reason: nausea and vomiting) 5 Days Qty: 14 0RF [place] [facility] [place] (Call to establish and follow up with a primary care provider. If you already have a primary care provider, please follow up with them.) [facility] [place] [facility] [place]] (Call to establish and follow up with a primary care provider. If you already have a primary care provider, please follow up with them.) [facility] [place] [facility] [place] Group] (Call to establish and follow up with a primary care provider. If you already have a primary care provider, please follow up with them.) Stand Alone Forms: Work/School Release Interventions: ED Discharge Assessment Last Done: 11/02/23 09:48 Discharge Date/Time: 11/02/23 09:48 Print Language: Angolan
[2023-11-02 07:08] VITALS: BP 139/93; PULSE 70; RESP 18; TEMP 36.4; O2SAT 99
--- NOTE | 2023-11-02 07:27 | PC.NURSE ---
pt alert and oriented, breathing even and unlabored. skin warm and dry. pt reports RLQ abd pain, constant and burning for the last couple of weeks along with multiple episodes of watery diarrhea and 1 episode of vomiting. Pt had recent diagnosis 1 month ago of H. pylori and took antibiotics but has since stopped. pt presented today due to worsening pain and diarrhea, pt does appear uncomfortable. Reports pain is 7/10, burning.
[2023-11-02 07:28] LABS: MANUAL DIFF FLAG NO
[2023-11-02 07:31] LABS: Eosinophils Absolute Auto 0.1 X10*3/uL (0.0-0.4); Eosinophils Percent Auto 1.4 % (0-4); Hematocrit 43.9 % (42.0-52.0); Imm Gran Abs Auto 0.02 X10*3/uL (0.00-0.03); Imm Gran Pct Auto 0.2 % (0.0-0.4); Lymphocytes Absolute Auto 1.1 X10*3/uL (1.2-4.9); Lymphocytes Percent Auto 12.9 % (20-40); Mean Corpuscular HGB Conc 34.2 g/dl (31.0-36.0); Mean Corpuscular Hemoglobin 28.5 pg (27.0-33.0); Mean Corpuscular Volume 83.3 fL (80.0-98.0); Mean Platelet Volume 9.1 fL (9.4-12.4); Monocytes Absolute Auto 0.4 X10*3/uL (0.1-1.2); Monocytes Percent Auto 4.3 % (2-11); Neutrophils Absolute Auto 6.9 x10*3/uL (2.0-8.3); Neutrophils Percent Auto 81.2 % (45-73); Platelet Count 203 X10*3/uL (160-400); Red Blood Count 5.27 X10*6/uL (4.60-5.80); Red Cell Distribution Width 13.5 % (11.0-16.0); White Blood Count 8.5 X10*3/uL (4.8-10.8)
[2023-11-02 07:52] LABS: Alanine Aminotransferase 19 U/L (0-40); Albumin Level 4.6 g/dL (3.5-5.0); Alkaline Phosphatase 61 U/L (39-117); Anion Gap 10 (12-20); Aspartate Amino Transferase 31 U/L (5-37); Bilirubin Total 1.4 mg/dL (0.0-1.0); Blood Urea Nitrogen 16 mg/dL (9-16); Calcium 9.3 mg/dL (8.4-10.2); Carbon Dioxide 28 mmol/L (22-29); Chloride 109 mmol/L (96-108); Creatinine Clr Calc Pharmacy 105.8; Estimated Glomerular Filt Rate > 60; Glucose Random 99 mg/dL (60-115); Lipase 15 U/L (8-78); Sodium 143 mmol/L (135-145); Total Protein 7.4 g/dL (6.5-8.0)
[2023-11-02 07:59] LABS: COVID-19 Test Negative (Negative); IDNOW Serial# 08D9AD1C
[2023-11-02 08:00] LABS: IDNOW Serial# 152EDE1D; Influenza A Negative (Negative); Influenza B2 Negative (Negative)
[2023-11-02] MEDS: Magnesium Hydrox/Alum Hydrox 30 ML ORAL.SUSP 15 ML PO (08:02)
[2023-11-02] MEDS: ondansetron HCL 4 MG/2 ML VIAL IVPUSH (08:03)
[2023-11-02 08:04] VITALS: RESP 16
[2023-11-02] MEDS: Morphine Sulfate 4 MG/ML CARTRIDGE IVPUSH (08:04)
[2023-11-02] MEDS: Pantoprazole Sodium 40 MG/10 ML VIAL IVPUSH (08:05)
[2023-11-02] MEDS: 0.9 % Sodium Chloride 1,000 ML 999 ML IV (08:10)
--- NOTE | 2023-11-02 08:22 | PC.NURSE ---
pt reports improvement in pain overall, taken to CT scan.
[2023-11-02] MEDS: iohexoL 350 MG/ML 100 ML INFUS..BTL IV (08:35)
[2023-11-02 09:36] VITALS: BP 109/61; PULSE 66; RESP 18; TEMP 36.6; O2SAT 98
[2023-11-02 09:46] LABS: Appearance Urine Clear; Color Urine Yellow; Glucose Urine UA Negative (Negative); Leukocyte Esterase Urine Negative (Negative); Nitrite Urine Negative (Negative); PH 5.5 (5.0-9.0); Specific Gravity - Urine >= 1.030 (1.005-1.025); Urine Blood Negative (Negative); Urine Ketones Negative (Negative); Urine Protein Negative (Neg-Trace)
== END 2023-11-02 09:48 | disposition home or self-care (01) ==
PROVIDERS: Physician Assistant Medical; Emergency Provider Emergency Medicine
DX: K52.9 Noninfective gastroenteritis and colitis, unspecified (principal); R11.2 Nausea with vomiting, unspecified; Z11.52 Encounter for screening for COVID-19
CPT/HCPCS: 36415; 74177; 80053; 81003; 83690; 85025; 87502; 87635; 96374; 96375; 99284; 99285; C9113; J2270; J2405; Q9967

== ENCOUNTER 2024-01-05 07:36 | Emergency (ER) | payer OTHER, MEDICAID, SELFPAY ==
--- NOTE | ~2024-01-05 | XR_ITS ---
EXAMINATION: XR ANKLE, LEFT CLINICAL INFORMATION: Left ankle pain after fall injury one week ago COMPARISON: None available. TECHNIQUE: AP, lateral, and mortise views of the left ankle. FINDINGS: No fracture. Alignment is anatomic. No erosions. Joint spaces are maintained. Soft tissues are normal. XR/XR ankle LT min 3V IMPRESSION: Unremarkable left ankle.
[2024-01-05 07:48] VITALS: BP 120/76; PULSE 57; RESP 19; TEMP 36.6; O2SAT 98; BMI 22.4
--- NOTE | 2024-01-05 08:10 | ED_ITS ---
HPI - Extremity Injury (Lower) General Chief Complaint: Extremity Injury, Lower Stated Complaint: L Ankle Injury 12/30/23 Time Seen by Provider: 01/05/24 08:08 Source: patient Mode of arrival: ambulatory Limitations: no limitations History of Present Illness HPI Narrative: 28 yo male with PMH of prior orthopedic injuries here with c/o playing football and hearing pop in L ankle last week. Has not rested and has been walking on it MD complaint: ankle injury Injury: Left: ankle Type of Injury: inversion Place: street/outdoors Severity: moderate Relieving factors: rest Exacerbating factors: weight bearing and palpation Context: fall Associated symptoms: snap/pop sensation and swelling Other symptoms: none Treatments prior to arrival: bandage Related Data Previous Rx's ?Medication ?Instructions ?Recorded acetaminophen 325 mg capsule 650 mg (2 x 325 mg) PO Q6H PRN 07/18/22 pain 7 days #28 caps ondansetron 4 mg disintegrating 4 mg PO DAILY PRN nausea and 09/16/23 tablet vomiting 5 days #14 tabs ondansetron 4 mg disintegrating 4 mg PO Q8H 3 days #9 tabs 11/02/23 tablet Allergies Allergy/AdvReac Type Severity Reaction Status Date / Time ibuprofen [From MOTRIN] Allergy Unknown SWELLING Verified 01/05/24 07:50 acetaminophen [From Tylenol] Allergy Swelling Verified 01/05/24 07:50 Review of Systems Review of Systems: Constitutional : No Fever, No Chills ENT/Mouth : No Ear Pain, No Hoarseness, No sore throat Eyes: No Eye Pain, No Swelling, No Redness, No Foreign Body Cardiovascular : No Chest Pain, No SOB Respiratory : No Cough, No Dyspnea Gastrointestinal : No Nausea, No Vomiting, No Diarrhea, No abdominal Pain Musculoskeletal : positive joint pain, No Myalgias, pos Joint Swelling Skin : No Skin lacerations, No rash Neuro : No Weakness, No Numbness, No Loss of Consciousness, No Dizziness, No Headache All other systems reviewed and are negative [facility] Past Medical History Attestation statement: The following information was validated with the patient. 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 Oriented X3. No acute distress. Eyes: Pupils equal, round and reactive to light. ENT: Pharynx normal. Neck: Normal inspection. CVS: Pulses normal. Respiratory: No respiratory distress. Abdomen: atraumatic Skin: Skin warm and dry. Normal skin color. Normal skin turgor. Extremities: No lower extremity edema. L ankle mild swelling lateral malleolus pulses intact no prox fib ttp foot normal exam Neuro: Oriented X 3. No motor deficit. No sensory deficit. Medical Decision Making Medical Decision Making MDM Narrative: 28 yo male with hx of prior orthopedic injuries here with L ankle injury while playing football - no prox fibula ttp he is NV intact will obtain xrays to rule out fracture. compartments are soft and compressible. aircast and crutches ordered. Differential Diagnosis Differential Diagnoses: The differential diagnosis associated with the presentation includes sprain, strain, fracture Independent Interpretation I performed an independent interpretation of an: Plain X-Ray (no fracture) Radiology Impression Discussion of test interpretation with radiology: I have reviewed the radiologist's reading. External Record Review External record reviewed: Inpatient record Procedures Orthopedic Splinting/Casting Injury #1: Side: left Lower Extremity Injury Location: ankle Lower Extremity Immobilizer: AirCast Other Orthopedic Equipment: crutches Discharge Plan Discharge Clinical Impression: Left ankle sprain Qualifiers: Encounter type: initial encounter Involved ligament of ankle: unspecified ligament Qualified Code(s): S93.402A - Sprain of unspecified ligament of left ankle, initial encounter Patient Disposition: Home, Self-Care Instructions: Ankle Sprain (ED) Additional Instructions: wear air cast for 7 days, use crutches for 5 days, can put some weight on toes if it feels better on day 3. follow up with your doctor if not better by Monday. no sports for 2 weeks until feeling better. YOU NEED TO STAY OFF OF IT FOR A COUPLE OF DAYS SO IT CAN HEAL EXAMINATION: XR ANKLE, LEFT CLINICAL INFORMATION: Left ankle pain after fall injury one week ago COMPARISON: None available. TECHNIQUE: AP, lateral, and mortise views of the left ankle. FINDINGS: No fracture. Alignment is anatomic. No erosions. Joint spaces are maintained. Soft tissues are normal. XR/XR ankle LT min 3V IMPRESSION: Unremarkable left ankle. Prescriptions: No Action acetaminophen 325 mg capsule 650 mg PO Q6H PRN (Reason: pain) 7 Days Qty: 28 0RF ondansetron 4 mg tablet,disintegrating 4 mg PO DAILY PRN (Reason: nausea and vomiting) 5 Days Qty: 14 0RF ondansetron 4 mg tablet,disintegrating 4 mg PO Q8H 3 Days Qty: 9 0RF Stand Alone Forms: Work/School Release Print Language: Persian
[2024-01-05 09:05] VITALS: BP 120/76; PULSE 57; RESP 19; TEMP 36.6; O2SAT 98
== END 2024-01-05 09:06 | disposition home or self-care (01) ==
PROVIDERS: Emergency Provider Emergency Medicine
DX: S93.402A Sprain of unspecified ligament of left ankle, initial encounter (principal); X58.XXXA Exposure to other specified factors, initial encounter; Y93.61 Activity, american tackle football; Y92.89 Other specified places as the place of occurrence of the external cause; Y99.9 Unspecified external cause status
CPT/HCPCS: 73610; 99283; 99284

== ENCOUNTER 2024-07-17 07:06 | Emergency (ER) | payer MEDICAID, SELFPAY ==
[2024-07-17 07:13] VITALS: BP 90/58; PULSE 86; RESP 16; TEMP 36.8; O2SAT 98; BMI 21.9
--- NOTE | 2024-07-17 07:37 | ED.GENADULT ---
HPI - General Adult General Chief complaint: General Medical Stated complaint: stomach pain, nausea Time Seen by Provider: 07/17/24 07:36 Source: patient Mode of arrival: ambulatory Limitations: no limitations History of Present Illness ED Provider: Jessika Alvarez PA-C HPI narrative: Patient is a 29 year old assigned male at with a history of H. Pylori presenting to the emergency department today with epigastric pain, fatigue, diarrhea, and nausea. Patient states that he has had these symptoms intermittently ever since being diagnosed with H.Pylori despite finishing treatment. Patient denies any dizziness, lightheadedness, vomiting, fever, chills, blurry vision, double vision, loss of vision, chest pain, difficulty breathing, shortness of breath, back pain, night sweats, pain with urination, increased urinary frequency, increased urinary urgency, blood in his urine or stool, syncope or a near syncopal episode, recent trauma or falls, bowel incontinence, bladder incontinence, or any other complaints at this time. Onset (ago): month(s) Relieving factors: none Exacerbating factors: none Associated symptoms: nausea/vomiting Treatments prior to arrival: none Related Data Previous Rx's ?Medication ?Instructions ?Recorded acetaminophen 325 mg capsule 650 mg (2 x 325 mg) PO Q6H PRN 07/18/22 pain 7 days #28 caps ondansetron 4 mg disintegrating 4 mg PO DAILY PRN nausea and 09/16/23 tablet vomiting 5 days #14 tabs ondansetron 4 mg disintegrating 4 mg PO Q8H 3 days #9 tabs 11/02/23 tablet omeprazole 20 mg capsule,delayed 20 mg PO DAILY #7 caps 07/17/24 release sucralfate 100 mg/mL oral 7.5 ml PO QID #414 mL 07/17/24 suspension (Carafate) Allergies Allergy/AdvReac Type Severity Reaction Status Date / Time ibuprofen [From MOTRIN] Allergy Unknown SWELLING Verified 07/17/24 07:18 acetaminophen [From Tylenol] Allergy Swelling Verified 07/17/24 07:18 Review of Systems Constitutional: Constitutional: Reports no additional constitutional complaints, Denies chills, Reports fatigue, Denies fever(s) and Denies night sweats Eyes: Eyes: Reports no additional eye complaints, Denies blurry vision, Denies change in vision, Denies diplopia, Denies eye discharge, Denies loss of vision and Denies eye pain ENT: Denies dizziness Cardiovascular: Cardiovascular: Reports no additional cardiovascular complaints, Denies chest pain, Denies lightheadedness, Denies Loss of Consciousness and Denies dyspnea Respiratory: Respiratory: Reports no additional respiratory complaints and Denies dyspnea Gastrointestinal: Gastrointestinal: Reports no additional gastrointestinal complaints, Reports abdominal pain, Denies melena, Denies hematochezia, Denies change in bowel habits, Denies change in stool character, Reports diarrhea and Reports nausea Genitourinary: Genitourinary: Reports no additional male genitourinary complaints, Denies hematuria, Denies oliguria, Denies difficulty urinating, Denies dysuria, Denies urinary frequency, Denies urinary hesitancy, Denies urinary incontinence and Denies urinary urgency Musculoskeletal: Musculoskeletal: Reports no additional musculoskeletal complaints, Denies numbness and Denies tingling Neurologic: Denies dizziness, Denies loss of vision, Denies numbness and Denies tingling Psychiatric: Psychiatric: Reports no additional psychiatric complaints Endocrine: Endocrine: Reports no additional endocrine complaints and Reports fatigue Hematologic/Lymphatic: Hematologic/Lymphatic: Reports no additional hematologic/lymphatic complaints Allergic/Immunologic: Allergic/Immunologic: Reports no additional allergic/immunologic complaints PMFSH Past Medical History Attestation statement: The following information was validated with the patient. 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 Physical Exam ED Vital Signs: Vital Signs - 24 hr 07/17/24 07:13 07/17/24 07:59 Temperature 98.3 F 97.9 F Pulse Rate 86 98 Respiratory Rate 16 18 Blood Pressure 90/58 L 126/80 Pulse Oximetry 98 98 Oxygen Delivery Method Room Air Room Air BMI result Body Mass Index 21.9 Const General: cooperative, no acute distress, alert and awake Nutritional Appearance: well nourished Orientation/consciousness: patient oriented x3 Limitations: no limitations HENMT Head: Yes normal to inspection and Yes atraumatic Ears: hearing grossly normal bilaterally and external ears normal General nose exam: Normal external nose present, no nasal discharge noted and no epistaxis Face and sinus: Yes normal facial exam, No abrasion and No laceration Mouth: Normal oral and palatal mucosa present, no drooling and no muffled voice Eyes General: appearance normal, both eyes and all related structures Periorbital: periorbital findings normal Eyelids: Yes eyelids normal Conjunctivae: conjunctivae normal Pupils: Equal, round and reactive pupils present EOM: EOMs intact bilaterally Neck Neck: Yes normal visual inspection, Yes full ROM and Yes no lymphadenopathy Chest Chest palpation & inspection: normal inspection of the chest Resp Effort & Inspection: normal respiratory effort and able to speak in complete sentences GI Inspection: Yes normal to inspection Neuro General: patient oriented x3 and moves all extremities Cranial nerves: Yes Equal, round and reactive pupils present Cognition (Neuro): normal cognition Extrem General: Yes normal to inspection, Yes full ROM and Yes capillary refill normal Psych Appearance: grossly normal Mental Status: mental status grossly normal Affect: normal affect Attitude: cooperative Thought process: Normal thought process present Thought content: Normal thought content present Insight: Good insight present (Psych) Medications Administered Discontinued Medications Generic Name Dose Route Start Last Admin Trade Name Muna PRN Reason Stop Dose Admin Omeprazole 40 mg 07/17/24 07:42 07/17/24 07:58 Omeprazole 40 Mg Capsule.Dr PO 07/17/24 07:43 40 mg ONCE ONE Administration Sucralfate 1 gm 07/17/24 07:42 07/17/24 07:59 Sucralfate Oral Suspension 1 Gm/10 Ml Oral.Susp PO 07/17/24 07:43 1 gm ONCE ONE Administration Medical Decision Making Medical Decision Making MDM Narrative: Patient is a 29 year old assigned male at with a history of H. Pylori presenting to the emergency department today with epigastric pain. Patient's physical exam was unremarkable. Patient's blood work was unremarkable. Patient's urine showed no acute process. I explained my physical exam findings as well as all test results to the patient. I answered all questions asked by the patient. I stressed the importance of the patient taking his medication as directed (either prescribed or as the over the counter packaging recommends). I stressed the importance of the patient following up with his primary care provider and a GI specialist. I stressed the importance of the patient returning to the emergency department immediately if his symptoms were to worsen or if he were to develop any dizziness, shortness of breath, difficulty breathing, chest pain, blurry vision, loss of vision, nausea, vomiting, abdominal pain, fever, chills, back pain, or any other complaints. Patient verbalized agreement and understanding with this treatment plan and discharge. Differential Diagnosis Differential Diagnoses: The differential diagnosis associated with the presentation includes Epigastric pain Chronic epigastric pain Gastric ulcer Admission/Observation Consideration of admission/observation: Escalation of care including admission/observation considered Patient would have been admitted to the hospital had his work up had any findings where hospital admission was appropriate and his clinical presentation warranted hospital admission. Lab Data [facility] Lab Attestation statement: I reviewed the patient's lab results. My interpretation of these results are in the [facility] Rationale portion of this note. 07/17/24 07:52 07/17/24 07:52 Labs: Lab Results 07/17/24 07/17/24 Range/Units 07:52 09:14 WBC 4.4 L (4.8-10.8) X10*3/uL RBC 5.03 (4.60-5.80) X10*6/uL Hgb 14.4 (14.0-18.0) g/dl Hct 42.0 (42.0-52.0) % MCV 83.5 (80.0-98.0) fL MCH 28.6 (27.0-33.0) pg MCHC 34.3 (31.0-36.0) g/dl RDW 13.3 (11.0-16.0) % Plt Count 213 (160-400) X10*3/uL MPV 9.2 L (9.4-12.4) fL Immature Gran % (Auto) 0.2 (0.0-0.4) % Neut % (Auto) 58.6 (45-73) % Lymph % (Auto) 31.7 (20-40) % Rankin % (Auto) 7.4 (2-11) % Eos % (Auto) 2.1 (0-4) % Baso % (Auto) 0.0 (0-2) % Lymph # (Auto) 1.4 (1.2-4.9) X10*3/uL Rankin # (Auto) 0.3 (0.1-1.2) X10*3/uL Eos # (Auto) 0.1 (0.0-0.4) X10*3/uL Baso # (Auto) 0.0 (0.0-0.2) X10*3/uL Abs Immat Gran (auto) 0.01 (0.00-0.03) X10*3/uL Absolute Neuts (auto) 2.6 (2.0-8.3) x10*3/uL Absolute Nucleated RBC 0.000 (0.0-0.012) X10*3/uL Nucleated RBC % (auto) 0.0 (0.0-0.2) /100WBC Sodium 142 (135-145) mmol/L Potassium 3.9 (3.3-5.1) mmol/L Chloride 107 (96-108) mmol/L Carbon Dioxide 27 (22-29) mmol/L Anion Gap 12 (12-20) BUN 12 (9-16) mg/dL Creatinine 1.17 (0.5-1.4) mg/dL Estim Creat Clear Calc 99.3 Estimated GFR > 60 Random Glucose 115 (60-115) mg/dL Calcium 9.7 (8.4-10.2) mg/dL Total Bilirubin 1.5 H (0.0-1.0) mg/dL Direct Bilirubin 0.4 (0.0-0.5) mg/dL AST 33 (5-37) U/L ALT 31 (0-40) U/L Alkaline Phosphatase 53 (39-117) U/L Total Protein 7.6 (6.5-8.0) g/dL Albumin 4.7 (3.5-5.0) g/dL Lipase 15 (8-78) U/L Urine Color Yellow Urine Appearance Clear Urine pH 7.5 (5.0-9.0) Ur Specific [place] 1.010 (1.005-1.025) Urine Protein Negative (Neg-Trace) mg/dL Urine Glucose (UA) Negative (Negative) mg/dL Urine Ketones Negative (Negative) mg/dL Urine Blood Negative (Negative) Urine Nitrite Negative (Negative) Ur Leukocyte Esterase Negative (Negative) T.pallidum Ab (EIA) Nonreactive (Nonreactive) Discharge Plan Discharge Clinical Impression: Chronic epigastric pain Patient Disposition: Home, Self-Care Instructions: Epigastric Pain (ED) Additional Instructions: Your work up today is reassuring. I am suspicious you have a gastric ulcer causing your epigastric / abdominal pain. Follow up with your primary care provider and your GI specialist. Return to the emergency department immediately if your symptoms worsen or if you develop any dizziness, shortness of breath, difficulty breathing, chest pain, blurry vision, loss of vision, nausea, vomiting, abdominal pain, fever, chills, back pain, or any other complaints. Prescriptions: New omeprazole 20 mg capsule,delayed release(DR/EC) 20 mg PO DAILY Qty: 7 0RF sucralfate [Carafate] 100 mg/mL suspension 7.5 ml PO QID Qty: 414 0RF Rx Instructions: swish in mouth and swallow; use after food/drink No Action acetaminophen 325 mg capsule 650 mg PO Q6H PRN (Reason: pain) 7 Days Qty: 28 0RF ondansetron 4 mg tablet,disintegrating 4 mg PO DAILY PRN (Reason: nausea and vomiting) 5 Days Qty: 14 0RF ondansetron 4 mg tablet,disintegrating 4 mg PO Q8H 3 Days Qty: 9 0RF Referrals: [facility] Gastroenterology Services [Provider Group] (Call to establish and follow up with a GI specialist. ) [facility] Family Medicine [Provider Group] (Call to establish and follow up with a primary care provider. If you already have a primary care provider, please follow up with them.) [facility] [Provider Group] (Call to establish and follow up with a primary care provider. If you already have a primary care provider, please follow up with them.) [facility] Primary [facility] [Provider Group] (Call to establish and follow up with a primary care provider. If you already have a primary care provider, please follow up with them.) Stand Alone Forms: Work/School Release Print Language: Burmese
[2024-07-17] MEDS: Omeprazole 40 MG CAPSULE.DR PO (07:58)
[2024-07-17 07:59] VITALS: BP 126/80; PULSE 98; RESP 18; TEMP 36.6; O2SAT 98
[2024-07-17] MEDS: Sucralfate Oral Suspension 1 GM/10 ML ORAL.SUSP PO (07:59)
[2024-07-17 08:00] LABS: MANUAL DIFF FLAG NO
[2024-07-17 08:18] LABS: Alanine Aminotransferase 31 U/L (0-40); Albumin Level 4.7 g/dL (3.5-5.0); Alkaline Phosphatase 53 U/L (39-117); Anion Gap 12 (12-20); Aspartate Amino Transferase 33 U/L (5-37); Bilirubin Direct 0.4 mg/dL (0.0-0.5); Bilirubin Total 1.5 mg/dL (0.0-1.0); Blood Urea Nitrogen 12 mg/dL (9-16); Calcium 9.7 mg/dL (8.4-10.2); Carbon Dioxide 27 mmol/L (22-29); Chloride 107 mmol/L (96-108); Creatinine Clr Calc Pharmacy 99.3; Estimated Glomerular Filt Rate > 60; Glucose Random 115 mg/dL (60-115); Lipase 15 U/L (8-78); Potassium 3.9 mmol/L (3.3-5.1); Sodium 142 mmol/L (135-145); Total Protein 7.6 g/dL (6.5-8.0)
[2024-07-17 08:30] LABS: Eosinophils Absolute Auto 0.1 X10*3/uL (0.0-0.4); Eosinophils Percent Auto 2.1 % (0-4); Hemoglobin 14.4 g/dl (14.0-18.0); Imm Gran Abs Auto 0.01 X10*3/uL (0.00-0.03); Imm Gran Pct Auto 0.2 % (0.0-0.4); Lymphocytes Absolute Auto 1.4 X10*3/uL (1.2-4.9); Lymphocytes Percent Auto 31.7 % (20-40); Mean Corpuscular HGB Conc 34.3 g/dl (31.0-36.0); Mean Corpuscular Hemoglobin 28.6 pg (27.0-33.0); Mean Corpuscular Volume 83.5 fL (80.0-98.0); Mean Platelet Volume 9.2 fL (9.4-12.4); Monocytes Absolute Auto 0.3 X10*3/uL (0.1-1.2); Monocytes Percent Auto 7.4 % (2-11); Neutrophils Absolute Auto 2.6 x10*3/uL (2.0-8.3); Neutrophils Percent Auto 58.6 % (45-73); Platelet Count 213 X10*3/uL (160-400); Red Blood Count 5.03 X10*6/uL (4.60-5.80); Red Cell Distribution Width 13.3 % (11.0-16.0); White Blood Count 4.4 X10*3/uL (4.8-10.8)
[2024-07-17 08:40] LABS: Syphilis Screen Nonreactive (Nonreactive)
[2024-07-17 09:27] LABS: Appearance Urine Clear; Color Urine Yellow; Glucose Urine UA Negative (Negative); Leukocyte Esterase Urine Negative (Negative); Nitrite Urine Negative (Negative); PH 7.5 (5.0-9.0); Urine Blood Negative (Negative); Urine Ketones Negative (Negative); Urine Protein Negative (Neg-Trace)
[2024-07-17 09:56] VITALS: BP 124/82; PULSE 72; RESP 18; TEMP 36.8; O2SAT 98
[2024-07-17 11:05] LABS: CT PCR NOT DETECTED (Not Detect.); NG PCR NOT DETECTED (Not Detect.)
[2024-07-18 08:51] LABS: HBS Num1 0.67 mIU/mL (0-7.99); HBc Num1 0.07 S/CO (0.00-0.79); HBsAGNum1 0.35 S/CO (0.00-0.99); HIV AB/AG Nonreactive (Nonreactive); HIV Num 1 0.05 S/CO (0.00-0.99); Hepatitis A Antibody IgM 0.17 Index (0-0.79); Hepatitis B Core Antibody Nonreactive (Nonreactive); Hepatitis B Surface Antigen Negative (Negative); ~HepC Num1 0.09 S/CO (0.00-0.79); ~Hepatitis A Antibody IgM Nonreactive (Nonreactive); ~Hepatitis B Surface Antibody NONREACTIVE (Nonreactive); ~Hepatitis C Antibody Nonreactive (Nonreactive)
== END 2024-07-17 09:56 | disposition home or self-care (01) ==
PROVIDERS: Physician Assistant Medical; Emergency Provider Emergency Medicine Emergency Medical Services
DX: R10.13 Epigastric pain (principal); R19.7 Diarrhea, unspecified; R53.83 Other fatigue; R11.0 Nausea
CPT/HCPCS: 36415; 80048; 80076; 81003; 83690; 85025; 86704; 86706; 86709; 86780; 86803; 87340; 87389; 87491; 87591; 99283; 99284

== ENCOUNTER 2025-03-12 23:35 | Emergency (ER) | payer MEDICAID, SELFPAY ==
[2025-03-12 23:36] VITALS: BP 136/80; PULSE 64; RESP 18; TEMP 36.6; O2SAT 98; BMI 22.6
--- NOTE | 2025-03-13 01:27 | ED_ITS ---
HPI - Extremity Injury (Lower) General Chief Complaint: Extremity Injury, Lower Stated Complaint: pulled muscle Time Seen by Provider: 03/13/25 00:19 Source: patient Mode of arrival: ambulatory Limitations: no limitations History of Present Illness ED Provider: Lexus Tse NP HPI Narrative: Patient is a 29-year-old male who presents emergency department for evaluation. He reports 2 days ago while playing football he felt a sudden pain in his left posterior leg and heard a loud popping noise. Thought that he may have injured his hamstring. He had not seek evaluation for this. He had continued to work/play with this. Was ?taking it easy?. Did not take any OTC analgesics as he reports history of hives and lip swelling to both acetaminophen and ibuprofen. He reports that today while stretching he felt sudden increase of pain again to his left posterior thigh. Denies numbness tingling or cold sensation to the extremity. Denies history of VTE/malignancy. No overt trauma / fall to suggest osseous abnormality Related Data Previous Rx's ?Medication ?Instructions ?Recorded acetaminophen 325 mg capsule 650 mg (2 x 325 mg) PO Q6 H PRN 07/18/22 pain 7 days #28 caps ondansetron 4 mg disintegrating 4 mg PO DAILY PRN naus ea and 09/16/23 tablet vomiting 5 days #14 tabs ondansetron 4 mg disintegrating 4 mg PO Q8H 3 days #9 tabs 11/02/23 tablet omeprazole 20 mg capsule,delayed 20 mg PO DAILY #7 cap s 07/17/24 release sucralfate 100 mg/mL oral 7.5 ml PO QID #414 mL suspension (Carafate) lidocaine 5 % topical patch 1 patch topical DAILY #30 ea 03/13/25 prednisone 20 mg tablet 40 mg (2 x 20 mg) PO DAILY # 10 tabs 03/13/25 Allergies Allergy/AdvReac Type Severity Reaction Status Date / Time ibuprofen (From MOTRIN) Allergy Unknown SWELLING Verified 03/12/25 23:37 acetaminophen (From Tylenol) Allergy Swelling Verified 03/12/25 23:37 Review of Systems Review of Systems: Yes all other systems are reviewed and are negative PMFSH Past Medical History Attestation statement: The following information was validated with the patient. 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 No acute distress.?Normal affect. Eyes: Pupils equal, round and reactive to light.? ENT: Pharynx normal.?? Neck: Normal inspection.? Neck supple.?? CVS: Heart sounds normal. Normal heart rate and rhythm.? Pulses normal.?? Respiratory: No respiratory distress.? Lung sounds clear to auscultation bilaterally?? Abdomen: Soft and non-tender. Normoactive bowel sounds. ?? Skin: Skin warm and dry.? Normal skin color.? Extremities: No lower extremity edema.? No calf ttp, 2+ DP/PT pulse. Negative Homans sign. Able to dorsiflex and plantar flex the foot without exacerbation of pain. Knee examination is benign. There is decreased flexion of the left hip joint, pain with elevation of the leg off the stretcher. There is no ecchymosis, swelling, or muscular defect that is noted. He has a mildly antalgic gait. ? Neuro: Moves all extremities spontaneously. Sensation intact bilaterally. Medical Decision Making Medical Decision Making MDM Narrative: Patient is a 29-year-old male presents for evaluation of proximal left posterior leg pain as per HPI, onset 2 weeks ago worsened today while stretching. On evaluation there is no lower extremity edema.? No calf ttp, 2+ DP/PT pulse. Negative Homans sign. Able to dorsiflex and plantar flex the foot without exacerbation of pain. Knee examination is benign. There is decreased flexion of the left hip joint, pain with elevation of the leg off the stretcher. There is no ecchymosis, swelling, or muscular defect that is noted. He has a mildly antalgic gait. ?Denies associated back pain to suggest no overt radiculopathy. Given no overt,, was suspicion for acute dislocation. Compartments are soft. Wells score low risk, low suspicion for DVT. Advised ice/heat, topical Lidoderm patches, given allergy to NSAID and acetaminophen will trial a course of prednisone advised outpatient follow-up with PCP/Orthopedics through them you persistent symptoms. All questions answered. Stable for discharge Differential Diagnosis Differential Diagnoses: The differential diagnosis associated with the presentation includes (See narrative above) Independent Historian Clinical information obtained from an independent historian. History obtained from or confirmed by: Spouse Prescription Management I considered prescription management with: Pain Medication Discharge Plan Discharge Clinical Impression: Left hamstring muscle strain Qualifiers: Encounter type: initial encounter Qualified Code(s): S76.312A - Strain of muscle, fascia and tendon of the posterior muscle group at thigh level, left thigh, initial encounter Patient Disposition: Home, Self-Care Instructions: Muscle Strain (ED), P.R.I.C.E. Treatment (ED), Hamstring Exercises (ED) Additional Instructions: Given allergies to Motrin and acetaminophen, I am sending a prescription for prednisone to the pharmacy to help with your pain as well as for anti- inflammatory purposes. Please take this with food to prevent any stomach upset. Take this daily in the morning. Apply ice/heat for 10-15 minutes 4-6 times daily. Apply Lidoderm patch to area of most pain leave on for 12 hours and remove for 12 hour period to prevent skin irritation. Follow-up with primary care provider and/or client experience specialist with any persistent symptoms. You may return to emergency department any new or worsening symptoms or concerns Prescriptions: New prednisone 20 mg tablet 40 mg PO DAILY Qty: 10 0RF lidocaine 5 % adhesive patch,medicated 1 patch topical DAILY Qty: 30 0RF Rx Instructions: leave on most painful area for up to 12 hrs No Action acetaminophen 325 mg capsule 650 mg PO Q6H PRN (Reason: pain) 7 Days Qty: 28 0RF ondansetron 4 mg tablet,disintegrating 4 mg PO DAILY PRN (Reason: nausea and vomiting) 5 Days Qty: 14 0RF ondansetron 4 mg tablet,disintegrating 4 mg PO Q8H 3 Days Qty: 9 0RF omeprazole 20 mg capsule,delayed release(DR/EC) 20 mg PO DAILY Qty: 7 0RF sucralfate [Carafate] 100 mg/mL suspension 7.5 ml PO QID Qty: 414 0RF Rx Instructions: swish in mouth and swallow; use after food/drink Referrals: [facility], [facility] [Primary Care Provider, Primary Care] Print Language: Barbadian
[2025-03-13 02:14] VITALS: BP 127/60; PULSE 54; RESP 18; TEMP 36.5; O2SAT 98
[2025-03-13 02:23] VITALS: BP 127/60; PULSE 54; RESP 18; TEMP 36.5
== END 2025-03-13 02:25 | disposition home or self-care (01) ==
PROVIDERS: Emergency Provider Internal Medicine; PCP Dentist General Practice
DX: S76.312A Strain of muscle, fascia and tendon of the posterior muscle group at thigh level, left thigh, initial encounter (principal); M79.605 Pain in left leg; X58.XXXA Exposure to other specified factors, initial encounter; Y93.9 Activity, unspecified; Y92.9 Unspecified place or not applicable; Y99.8 Other external cause status
CPT/HCPCS: 99283; 99284